=== PATIENT | male | born 1955 | race Caucasian/White ===

== ENCOUNTER 2018-04-24 14:45 | Observation (INO) | payer OTHER ==
[~2018-04-24] VITALS: Ht 177.8 cm; Wt 91.5 kg
[2018-04-24 15:06] LABS: BASOPHILS ABSOLUTE AUTO 0.02 K/mm3 (0.00-0.23); BASOPHILS PERCENT AUTO 0 % (0-2); EOSINOPHILS ABSOLUTE AUTO 0.04 K/mm3 (0.00-0.68); EOSINOPHILS PERCENT AUTO 1 % (0-6); Hematocrit 41.4 % (37.0-53.0); Hemoglobin 14.5 g/dL (13.5-17.5); IMMATURE GRAN ABSOLUTE AUTO 0.02 K/mm3 (0.00-0.10); IMMATURE GRAN PERCENT AUTO 0 % (0-1); LYMPHOCYTES ABSOLUTE AUTO 2.25 K/mm3 (0.84-5.20); LYMPHOCYTES PERCENT AUTO 33 % (21-46); MONOCYTES ABSOLUTE AUTO 0.36 K/mm3 (0.16-1.47); MONOCYTES PERCENT AUTO 5 % (4-13); Mean Corpuscular HGB 31.3 pg (26.0-34.0); Mean Corpuscular Volume 89 fL (80-100); Mean Platelet Volume 9.5 fL (9.1-12.4); NEUTROPHILS ABSOLUTE AUTO 4.07 K/mm3 (1.96-9.15); NEUTROPHILS PERCENT AUTO 60 % (41-73); Platelet Count 261 K/mm3 (150-400); RDW Coefficient Variation 11.9 % (11.7-14.2); RDW Standard Deviation 38.5 fL (35.1-46.3); Red Blood Cell Count 4.64 M/mm3 (4.30-5.90); White Blood Cell Count 6.76 K/mm3 (4.00-11.30)
[2018-04-24 15:23] LABS: Alanine Aminotransfer (ALT/SGP 33 U/L (12-78); Albumin, Blood 3.8 g/dL (3.4-5.0); Albumin/Globulin Ratio 1.1 (0.8-1.8); Alk Phos 34 U/L (50-136); Anion Gap 8 mmol/L (6-16); Aspartate Aminotrans (AST/SGOT 27 U/L (12-37); Bilirubin, Total 0.6 mg/dL (0.1-1.0); Blood Urea Nitrogen 13 mg/dL (8-24); Bun/Creatinine Ratio 14.7 (12.0-20.0); CO2, Blood 25 mmol/L (21-32); Calcium, Blood 8.8 mg/dL (8.5-10.1); Chloride, Blood 108 mmol/L (98-108); Creatinine, Blood 0.88 mg/dL (0.60-1.20); Globulin, Blood 3.4 g/dL (2.2-4.0); Glomerular Filtration Rate >60 (60-); Glucose, Blood 89 mg/dL (70-99); Sodium, Blood 141 mmol/L (136-145); Total Protein, Blood 7.2 g/dL (6.4-8.2); Troponin I <0.015 ng/mL (0.000-0.040)
[2018-04-25 07:30] LABS: Troponin I <0.015 ng/mL (0.000-0.040)
[2018-04-25 08:45] LABS: CHOL/HDL RATIO 3.8; Cholesterol 163 mg/dL (50-200); HDL Cholesterol 43 mg/dL (>39); LDL/HDL RATIO 2.4; Low Density Lipoprotein Chol 104 mg/dL (0-110); Triglycerides 82 mg/dL (30-160); Very Low Density Lipoprot Chol 16 mg/dL (6-32)
[2018-04-26] MEDS ORDERED: ASPI81CH PO (16:12)
== END 2018-04-26 16:31 | disposition home or self-care (01) ==
LOC: ER 14:45 → PCU 14:46
PROVIDERS: Emergency Medicine; Family Medicine
DX: R07.9 Chest pain, unspecified (principal); I10 Essential (primary) hypertension; F41.9 Anxiety disorder, unspecified; F43.9 Reaction to severe stress, unspecified; Z88.2 Allergy status to sulfonamides; Z79.899 Other long term (current) drug therapy; Z82.49 Family history of ischemic heart disease and other diseases of the circulatory system
CPT/HCPCS: 36415; 71046; 78452; 80053; 80061; 83880; 84484; 85025; 85379; 93005; 93010; 93017; 96374; 96375; 96376; 99285-25; A9500; G0378; J0706; J2785; J3010

== ENCOUNTER 2018-12-14 10:36 | Inpatient (IN) | payer OTHER ==
[~2018-12-14] VITALS: Ht 170.2 cm; Wt 98.2 kg
[~2018-12-14 10:36] MED LIST: ASPI81CH PO
[2018-12-14] MEDS ORDERED: CLON.5 PO (10:58)
[2018-12-14] MEDS ORDERED: PRAZ2 PO (10:58)
[2018-12-14] MEDS ORDERED: Mirtazapine7.5 MG PO (10:59)
[2018-12-14 11:25] LABS: BASOPHILS ABSOLUTE AUTO 0.03 K/mm3 (0.00-0.23); BASOPHILS PERCENT AUTO 0 % (0-2); EOSINOPHILS ABSOLUTE AUTO 0.06 K/mm3 (0.00-0.68); EOSINOPHILS PERCENT AUTO 1 % (0-6); Hematocrit 45.4 % (37.0-53.0); Hemoglobin 15.6 g/dL (13.5-17.5); IMMATURE GRAN ABSOLUTE AUTO 0.02 K/mm3 (0.00-0.10); IMMATURE GRAN PERCENT AUTO 0 % (0-1); LYMPHOCYTES ABSOLUTE AUTO 2.32 K/mm3 (0.84-5.20); LYMPHOCYTES PERCENT AUTO 32 % (21-46); MONOCYTES ABSOLUTE AUTO 0.41 K/mm3 (0.16-1.47); MONOCYTES PERCENT AUTO 6 % (4-13); Mean Corpuscular HGB 31.1 pg (26.0-34.0); Mean Corpuscular HGB Conc 34.4 g/dL (31.5-36.5); Mean Corpuscular Volume 90 fL (80-100); Mean Platelet Volume 9.7 fL (9.1-12.4); NEUTROPHILS ABSOLUTE AUTO 4.44 K/mm3 (1.96-9.15); NEUTROPHILS PERCENT AUTO 61 % (41-73); Platelet Count 259 K/mm3 (150-400); RDW Coefficient Variation 12.1 % (11.7-14.2); RDW Standard Deviation 39.8 fL (35.1-46.3); Red Blood Cell Count 5.02 M/mm3 (4.30-5.90); White Blood Cell Count 7.28 K/mm3 (4.00-11.30)
[2018-12-14 11:36] LABS: Anion Gap 7 mmol/L (6-16); Blood Urea Nitrogen 15 mg/dL (8-24); Bun/Creatinine Ratio 17.9 (12.0-20.0); CO2, Blood 22 mmol/L (21-32); Calcium, Blood 8.8 mg/dL (8.5-10.1); Chloride, Blood 110 mmol/L (98-108); Creatinine, Blood 0.84 mg/dL (0.60-1.20); Glomerular Filtration Rate >60 (60-); Glucose, Blood 91 mg/dL (70-99); Potassium, Blood 3.8 mmol/L (3.5-5.5); Sodium, Blood 139 mmol/L (136-145)
[2018-12-14 14:55] LABS: Source, Urine Clean Catch
[2018-12-14 14:59] LABS: Bilirubin, Urine Neg (Neg); Blood, Urine Neg (Neg); Glucose Qualitative, Urine Neg (Neg); Ketones, Urine 2+ (Neg); Leukocyte Esterase, Urine 1+ (Neg); Nitrite, Urine Neg (Neg); Protein, Urine 1+ (Neg); Urobilinogen, Urine 1+ (Normal)
[2018-12-14 15:06] LABS: Appearance, Urine Clear (Clear); Color, Urine Amber (P-Yellow)
[2018-12-14 15:20] LABS: Bacteria Rare /hpf; Mucus Heavy (0-Heavy); Red Blood Cells, Urine Rare /hpf (0-2); Squamous Epithelial Cells Few /hpf (Few); White Blood Cells, Urine 0-2 /hpf (0-5)
--- NOTE | 2018-12-14 23:50 | NUR ---
pT CAME FROM er WITH NO DIET ORDER. pT HAVING NO PROBLEMS SWALLOWING AND IS VERY HUNGRY. MD called and cardiac diet recieved.
--- NOTE | 2018-12-15 04:03 | NUR ---
Shift summary. Pt had slept well since getting pm meds and fed some food. Pt states that most of his stroke symptoms has been resolved except for his right leg. Pt can bear weight but has a hard time getting his right leg to do what he wants it to do. 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 pt having no problems with swallowing. No facial droop noted.
--- NOTE | 2018-12-15 11:34 | NUR ---
Echocardiogram using 9.0ml of agitated saline contrast performed.
--- NOTE | 2018-12-15 16:49 | NUR ---
PATIENT UP AND WALKING WITH PT THIS SHIFT. NO FACIAL DROOP NOTED. HE IS ALERT AND ORIENTED AND NO SLUR TO SPEACH NOTED. NO COMPLAINTS OF PAIN. AT BEDSIDE ALL SHIFT.
--- NOTE | 2018-12-16 04:49 | NUR ---
Shift summary: Pt slept well overnight with no c/o discomfort after i gave him tylenol for right knee pain at hs. Pt still experiencing weakness in his left leg but states its improving. Pt tolerating po well. VSS.
[2018-12-16 05:32] LABS: BASOPHILS ABSOLUTE AUTO 0.03 K/mm3 (0.00-0.23); BASOPHILS PERCENT AUTO 1 % (0-2); EOSINOPHILS ABSOLUTE AUTO 0.26 K/mm3 (0.00-0.68); EOSINOPHILS PERCENT AUTO 4 % (0-6); Hematocrit 44.7 % (37.0-53.0); Hemoglobin 14.8 g/dL (13.5-17.5); IMMATURE GRAN ABSOLUTE AUTO 0.03 K/mm3 (0.00-0.10); IMMATURE GRAN PERCENT AUTO 1 % (0-1); LYMPHOCYTES ABSOLUTE AUTO 2.62 K/mm3 (0.84-5.20); LYMPHOCYTES PERCENT AUTO 42 % (21-46); MONOCYTES PERCENT AUTO 6 % (4-13); Mean Corpuscular HGB 30.7 pg (26.0-34.0); Mean Corpuscular HGB Conc 33.1 g/dL (31.5-36.5); Mean Platelet Volume 9.6 fL (9.1-12.4); NEUTROPHILS PERCENT AUTO 46 % (41-73); Platelet Count 223 K/mm3 (150-400); RDW Coefficient Variation 12.3 % (11.7-14.2); Red Blood Cell Count 4.82 M/mm3 (4.30-5.90); White Blood Cell Count 6.24 K/mm3 (4.00-11.30)
[2018-12-16 05:34] LABS: Mean Corpuscular Volume 93 fL (80-100)
[2018-12-16 06:10] LABS: Alanine Aminotransfer (ALT/SGP 31 U/L (12-78); Albumin, Blood 3.5 g/dL (3.4-5.0); Albumin/Globulin Ratio 1.2 (0.8-1.8); Alk Phos 29 U/L (50-136); Anion Gap 7 mmol/L (6-16); Aspartate Aminotrans (AST/SGOT 18 U/L (12-37); Bilirubin, Total 0.6 mg/dL (0.1-1.0); Blood Urea Nitrogen 14 mg/dL (8-24); CO2, Blood 24 mmol/L (21-32); Calcium, Blood 8.5 mg/dL (8.5-10.1); Chloride, Blood 113 mmol/L (98-108); Creatinine, Blood 0.82 mg/dL (0.60-1.20); Glomerular Filtration Rate >60 (60-); Glucose, Blood 88 mg/dL (70-99); Potassium, Blood 4.1 mmol/L (3.5-5.5); Sodium, Blood 144 mmol/L (136-145); Total Protein, Blood 6.5 g/dL (6.4-8.2)
[2018-12-16] MEDS ORDERED: ASPI81CH PO (13:45)
--- NOTE | 2018-12-16 18:11 | NUR ---
DISCHARGE SUMMARY PT A&OX4. CALM AND COOPERATIVE WITH CARE. PT ANXIOUS AT TIMES, MEDICATED WITH SCHEDULED CLONOPIN. PT RPEORTS HEADACHE THIS AM, DENIES NEED OLIVIA MEDICATIONS. PT DENEIS SOB AND N/V T/O SHIFT. RLE WEAKNESS GREATER THEN RUE, RUE STILL NOTED IN COAT OPERATOR INSULATOR. VSS. NO OTHER ACUTE CHANGES NOTED DURING SHIFT. PT EDUCATED ON DISCHARGE INSTRUCTIONS, MEDICATIONS AND FOLLOW UP APPOINTMENTS. PT STATES HE WILL NOT BE SEEING DR CAMPOVERDE AGAIN, HIM AND HIS SPOUSE WERE "FIRED" FROM HIS CARE. PT STATES THAT HE PLANS TO SET UP A PCP AND HAVE A FIRST APPOINTMENT SOON. NO NEW PRESCRIPTIONS. PT LEFT ROOM VIA WHEELCHAIR AT 1520. PT STABLE UPON DISCHARGE.
== END 2018-12-16 16:10 | disposition home or self-care (01) | DRG 103 ==
LOC: ER 10:36 → MEDS 16:58
PROVIDERS: Emergency Medicine; Internal Medicine; ADMIT Internal Medicine
DX: G43.109 Migraine with aura, not intractable, without status migrainosus (principal); Q21.0 Ventricular septal defect; R53.1 Weakness; I10 Essential (primary) hypertension; F41.1 Generalized anxiety disorder; F43.10 Post-traumatic stress disorder, unspecified; F32.9 Major depressive disorder, single episode, unspecified
CPT/HCPCS: 36415; 70450; 70496; 70498; 70551; 80048; 80053; 81001; 84443; 85025; 85651; 87086; 92610; 93005; 93010; 93306; 96361; 96374-59; 96375-59; 97110; 97116; 97162; 97166; 97530; 97535; 99285-25; J2060; J2765; J7030; Q9967

== ENCOUNTER 2019-05-07 13:15 | Emergency (ER) | payer OTHER ==
[~2019-05-07] VITALS: Ht 172.7 cm; Wt 88.5 kg
[~2019-05-07 13:15] MED LIST changes: +CLON.5 PO; +Mirtazapine45 M1 PO; +PRAZ1 PO
[2019-05-07 13:42] LABS: BASOPHILS ABSOLUTE AUTO 0.04 K/mm3 (0.00-0.23); BASOPHILS PERCENT AUTO 1 % (0-2); EOSINOPHILS ABSOLUTE AUTO 0.01 K/mm3 (0.00-0.68); EOSINOPHILS PERCENT AUTO 0 % (0-6); Hematocrit 44.3 % (37.0-53.0); IMMATURE GRAN ABSOLUTE AUTO 0.02 K/mm3 (0.00-0.10); IMMATURE GRAN PERCENT AUTO 0 % (0-1); LYMPHOCYTES PERCENT AUTO 27 % (21-46); MONOCYTES ABSOLUTE AUTO 0.44 K/mm3 (0.16-1.47); MONOCYTES PERCENT AUTO 6 % (4-13); Mean Corpuscular HGB Conc 33.9 g/dL (31.5-36.5); Mean Corpuscular Volume 92 fL (80-100); Mean Platelet Volume 9.3 fL (9.1-12.4); NEUTROPHILS ABSOLUTE AUTO 4.75 K/mm3 (1.96-9.15); NEUTROPHILS PERCENT AUTO 66 % (41-73); Platelet Count 244 K/mm3 (150-400); RDW Coefficient Variation 12.1 % (11.7-14.2); RDW Standard Deviation 40.3 fL (35.1-46.3); Red Blood Cell Count 4.84 M/mm3 (4.30-5.90); White Blood Cell Count 7.16 K/mm3 (4.00-11.30)
[2019-05-07 13:57] LABS: International Normalized Ratio 1.04
[2019-05-07 14:02] LABS: Alanine Aminotransfer (ALT/SGP 42 U/L (12-78); Albumin, Blood 4.2 g/dL (3.4-5.0); Albumin/Globulin Ratio 1.1 (0.8-1.8); Alk Phos 41 U/L (50-136); Anion Gap 8 mmol/L (6-16); Aspartate Aminotrans (AST/SGOT 28 U/L (12-37); Bilirubin, Total 0.6 mg/dL (0.1-1.0); Blood Urea Nitrogen 16 mg/dL (8-24); Bun/Creatinine Ratio 19.5 (12.0-20.0); CO2, Blood 24 mmol/L (21-32); Calcium, Blood 8.9 mg/dL (8.5-10.1); Chloride, Blood 109 mmol/L (98-108); Creatinine, Blood 0.82 mg/dL (0.60-1.20); Globulin, Blood 3.7 g/dL (2.2-4.0); Glomerular Filtration Rate >60 (60-); Glucose, Blood 118 mg/dL (70-99); Sodium, Blood 141 mmol/L (136-145); Total Protein, Blood 7.9 g/dL (6.4-8.2)
[2019-05-07] MEDS ORDERED: Esgic Tablet1 EACH PO (17:01)
== END 2019-05-07 17:35 | disposition home or self-care (01) ==
LOC: ER 13:15
PROVIDERS: Emergency Medicine
DX: G43.409 Hemiplegic migraine, not intractable, without status migrainosus (principal); R47.01 Aphasia; F32.9 Major depressive disorder, single episode, unspecified; Z88.2 Allergy status to sulfonamides; Z91.018 Allergy to other foods; Z79.899 Other long term (current) drug therapy; Z79.82 Long term (current) use of aspirin; Z79.02 Long term (current) use of antithrombotics/antiplatelets
CPT/HCPCS: 36415; 70496; 80053; 85025; 85610; 85730; 93005; 93010; 96365-59; 96375-59; 99284-25; J1170; J1885; J2550; J3475; Q9967

== ENCOUNTER 2019-05-09 13:58 | Inpatient (IN) | payer OTHER ==
[~2019-05-09] VITALS: Ht 170.2 cm; Wt 91.4 kg
[~2019-05-09 13:58] MED LIST changes: +Esgic Tablet1 EACH PO
[2019-05-09 14:30] LABS: BASOPHILS ABSOLUTE AUTO 0.01 K/mm3 (0.00-0.23); BASOPHILS PERCENT AUTO 0 % (0-2); EOSINOPHILS ABSOLUTE AUTO 0.04 K/mm3 (0.00-0.68); EOSINOPHILS PERCENT AUTO 1 % (0-6); Hemoglobin 12.5 g/dL (13.5-17.5); IMMATURE GRAN ABSOLUTE AUTO 0.02 K/mm3 (0.00-0.10); IMMATURE GRAN PERCENT AUTO 0 % (0-1); LYMPHOCYTES ABSOLUTE AUTO 1.97 K/mm3 (0.84-5.20); LYMPHOCYTES PERCENT AUTO 32 % (21-46); MONOCYTES ABSOLUTE AUTO 0.45 K/mm3 (0.16-1.47); MONOCYTES PERCENT AUTO 7 % (4-13); Mean Corpuscular HGB 31.3 pg (26.0-34.0); Mean Corpuscular HGB Conc 33.8 g/dL (31.5-36.5); Mean Corpuscular Volume 93 fL (80-100); Mean Platelet Volume 9.8 fL (9.1-12.4); NEUTROPHILS ABSOLUTE AUTO 3.74 K/mm3 (1.96-9.15); NEUTROPHILS PERCENT AUTO 60 % (41-73); Platelet Count 176 K/mm3 (150-400); RDW Coefficient Variation 11.9 % (11.7-14.2); RDW Standard Deviation 40.7 fL (35.1-46.3); White Blood Cell Count 6.23 K/mm3 (4.00-11.30)
[2019-05-09] MEDS ORDERED: CLOP75 PO (14:31)
[2019-05-09] MEDS ORDERED: CLON1 PO (14:31)
[2019-05-09 14:32] LABS: Source, Urine Clean Catch
[2019-05-09] MEDS ORDERED: VENL75ER PO (14:32)
[2019-05-09] MEDS ORDERED: HYDPAM25 PO (14:32)
[2019-05-09 14:35] LABS: Bilirubin, Urine Neg (Neg); Blood, Urine 2+ (Neg); Glucose Qualitative, Urine Neg (Neg); Ketones, Urine Neg (Neg); Leukocyte Esterase, Urine Neg (Neg); Nitrite, Urine Neg (Neg); Protein, Urine Neg (Neg); Urobilinogen, Urine NORM (Normal)
[2019-05-09 14:45] LABS: Acetaminophen, Random 42.4 ug/mL (10.0-30.0); Alanine Aminotransfer (ALT/SGP 33 U/L (12-78); Albumin, Blood 3.4 g/dL (3.4-5.0); Albumin/Globulin Ratio 1.3 (0.8-1.8); Alk Phos 31 U/L (50-136); Anion Gap 11 mmol/L (6-16); Aspartate Aminotrans (AST/SGOT 19 U/L (12-37); Bilirubin, Total 0.9 mg/dL (0.1-1.0); Blood Urea Nitrogen 15 mg/dL (8-24); Bun/Creatinine Ratio 15.6 (12.0-20.0); CO2, Blood 21 mmol/L (21-32); Calcium, Blood 7.5 mg/dL (8.5-10.1); Chloride, Blood 106 mmol/L (98-108); Creatinine, Blood 0.96 mg/dL (0.60-1.20); Ethanol (Alcohol), Blood, Med <3 mg/dL; Free Thyroxine 1.15 ng/dL (0.70-1.60); Globulin, Blood 2.7 g/dL (2.2-4.0); Glomerular Filtration Rate >60 (60-); Glucose, Blood 129 mg/dL (70-99); Salicylate <1.7 mg/dL (2.8-20.0); Sodium, Blood 138 mmol/L (136-145); Total Protein, Blood 6.1 g/dL (6.4-8.2)
[2019-05-09 14:47] LABS: Appearance, Urine Clear (Clear); Color, Urine Yellow (P-Yellow)
[2019-05-09 14:47] LABS: PCO2 Arterial 28.8 mmHg (35-45); PO2 Arterial 391 mmHg (80-100); pH Blood Arterial 7.42 (7.35-7.45)
[2019-05-09 14:48] LABS: Bacteria Few /hpf; Squamous Epithelial Cells Not Seen /hpf (Few); White Blood Cells, Urine 0-2 /hpf (0-5)
[2019-05-09 14:49] LABS: U Amphetamine Screen Not Detected; U Barbituate Screen DETECTED; U Benzodiazapine Screen Not Detected; U Buprenorphine Screen Not Detected; U Cannabinoids Screen Not Detected; U Cocaine Screen Not Detected; U Methadone Screen Not Detected; U Methamphetamine Screen Not Detected; U Opiates Screen Not Detected; U Oxycodone Screen Not Detected; U Phencyclidine Screen Not Detected; U Propoxyphene Screen Not Detected
[2019-05-09 16:07] LABS: International Normalized Ratio 1.11; Prothrombin Time Results 11.7 Sec (9.7-11.5)
--- NOTE | 2019-05-09 17:30 | NUR ---
Asked by ED staff to provide calm presence to spouse, Lissette. 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 She beleives his health problems combined with his depression led him to attempt suicide. Then she states she is not sure this was an intentional attempt. Nish explained to me in-detail her own health issues at length. Provided calm asurance of care and attention. Encouraged she go home to rest once Nilesh is settled. I will remain available to pt and spouse.
--- NOTE | 2019-05-09 18:41 | NUR ---
1630-RECEIVED THIS PATIENT FROM ER WITH A DIAGNOSIS OF MULTIPLE DRUG OVERDOSE. UNKNOWN OF WHEN PT HAD INGESTED THE MEDICATIONS. PT IS ON 15MCG/KG/MIN OF PROPFOL. PT IS UNRESPONSIVE TO VERBAL STIMULI BUT SLIGHT RESPONSE TO DEEP PAIN. PT SEEN BY DR. THOMASON. PT IS INTUBATED AND VENTED AC 16, TV 450 PEEP 5 1700-PT SEEN BY DR. MUHAMMAD 1730-DECREASED PROPOFOL DRIP TO 10MCG/KG/MIN. 1800-PT WAS TAKEN TO RADIOLOGY FOR CT SCAN HEAD. 184-POISON CONTROLLED CALLED FOR FOLLOW UP. POISON CONTROL RECOMMENDED TO RECHECK ANOTHER ASPIRIN LEVEL. DR. MUHAMMAD WAS NOTIFIED ORDERS RECEIVED.
--- NOTE | 2019-05-09 20:00 | NUR ---
ASSUMED CARE BEDSIDE REPORT RECIEVED. PT IS LAYING IN BED, SEDATED, ON VENTILATOR. VENT SETTINGS AC 16, TV 450, PEEP 5, FIO2 30%. PT SEDATED WITH PROPOFOL AT 10 MCG/KG/MIN. PT NOT AROUSING TO VERBAL OR NOXIOUS STIMULI. PUPILS SLUGGISH. PT WITH MINIMAL GAG RESPONSE WITH DEEP ORAL SUCTION. PT WITH COPIOUS BLOODY ORAL SECRETIONS, MINIMAL SECRETIONS FROM ETT SUCTION. OGT IN PLACE TO LIS, NO NEW OUTPUT NOTED. RUIZ IN PLACE WITH CLEAR YELLOW OUTPUT NOTED. SBW RESTRAINTS INPLACE. VITAL SIGNS STABLE. PT HYPOTHERMIC, BEAR HUGGER AND WARM BLANKETS IN PLACE. PT SPOUSE AT BEDSIDE, THOROUGHLY EXPLAINED PLAN OF CARE AND PATIENT CARE ACTIVITIES. WILL CONTINUE TO MONITOR.
--- NOTE | 2019-05-09 21:14 | NUR ---
VENT SETTINGS PT CONTINUES TO HAVE ASYNCRONY WITH VENT. DR WATERMAN NOTIFIED AND UPDATED TO PT CONDITION. PT SWITCH TO PRESSURE SUPPORT OF 7/5 AND TOLERATING WELL. OK TO LEAVE PT ON PRESSURE SUPPORT LONG TOLERATED. PROPOFOL ON STANDBY AT THIS TIME. WILL CONTINUE TO MONITOR.
[2019-05-09 22:09] LABS: Alanine Aminotransfer (ALT/SGP 39 U/L (12-78); Albumin, Blood 3.2 g/dL (3.4-5.0); Albumin/Globulin Ratio 1.1 (0.8-1.8); Alk Phos 31 U/L (50-136); Anion Gap 12 mmol/L (6-16); Aspartate Aminotrans (AST/SGOT 17 U/L (12-37); Bilirubin, Total 0.7 mg/dL (0.1-1.0); Blood Urea Nitrogen 15 mg/dL (8-24); Bun/Creatinine Ratio 22.7 (12.0-20.0); CO2, Blood 21 mmol/L (21-32); Calcium, Blood 7.3 mg/dL (8.5-10.1); Chloride, Blood 106 mmol/L (98-108); Creatinine, Blood 0.66 mg/dL (0.60-1.20); Glomerular Filtration Rate >60 (60-); Glucose, Blood 174 mg/dL (70-99); Magnesium, Blood 1.9 mg/dL (1.6-2.4); Potassium, Blood 4.5 mmol/L (3.5-5.5); Salicylate <1.7 mg/dL (2.8-20.0); Sodium, Blood 139 mmol/L (136-145); Total Protein, Blood 6.2 g/dL (6.4-8.2)
--- NOTE | 2019-05-09 23:41 | NUR ---
POISON CONTROL UPDATED TO MOST RECENT EKG, LABS, AND VS. NO NEW RECOMMENDATIONS AT THIS TIME. WILL CONTINUE TO MONITOR.
[2019-05-10 03:30] LABS: BASOPHILS ABSOLUTE AUTO 0.02 K/mm3 (0.00-0.23); BASOPHILS PERCENT AUTO 0 % (0-2); EOSINOPHILS ABSOLUTE AUTO 0.01 K/mm3 (0.00-0.68); EOSINOPHILS PERCENT AUTO 0 % (0-6); Hematocrit 36.2 % (37.0-53.0); Hemoglobin 12.7 g/dL (13.5-17.5); IMMATURE GRAN ABSOLUTE AUTO 0.03 K/mm3 (0.00-0.10); IMMATURE GRAN PERCENT AUTO 0 % (0-1); LYMPHOCYTES ABSOLUTE AUTO 1.22 K/mm3 (0.84-5.20); LYMPHOCYTES PERCENT AUTO 13 % (21-46); MONOCYTES ABSOLUTE AUTO 0.43 K/mm3 (0.16-1.47); MONOCYTES PERCENT AUTO 4 % (4-13); Mean Corpuscular HGB 31.1 pg (26.0-34.0); Mean Corpuscular HGB Conc 35.1 g/dL (31.5-36.5); Mean Corpuscular Volume 89 fL (80-100); Mean Platelet Volume 9.6 fL (9.1-12.4); NEUTROPHILS ABSOLUTE AUTO 8.03 K/mm3 (1.96-9.15); NEUTROPHILS PERCENT AUTO 83 % (41-73); Platelet Count 188 K/mm3 (150-400); RDW Coefficient Variation 11.7 % (11.7-14.2); RDW Standard Deviation 37.3 fL (35.1-46.3); Red Blood Cell Count 4.09 M/mm3 (4.30-5.90); White Blood Cell Count 9.74 K/mm3 (4.00-11.30)
[2019-05-10 03:49] LABS: Alanine Aminotransfer (ALT/SGP 33 U/L (12-78); Alk Phos 29 U/L (50-136); Anion Gap 10 mmol/L (6-16); Aspartate Aminotrans (AST/SGOT 21 U/L (12-37); Bilirubin, Total 0.8 mg/dL (0.1-1.0); Blood Urea Nitrogen 12 mg/dL (8-24); Bun/Creatinine Ratio 18.2 (12.0-20.0); CO2, Blood 22 mmol/L (21-32); Calcium, Blood 7.3 mg/dL (8.5-10.1); Chloride, Blood 108 mmol/L (98-108); Creatinine, Blood 0.66 mg/dL (0.60-1.20); Glomerular Filtration Rate >60 (60-); Glucose, Blood 120 mg/dL (70-99); Magnesium, Blood 1.8 mg/dL (1.6-2.4); Potassium, Blood 3.7 mmol/L (3.5-5.5); Sodium, Blood 140 mmol/L (136-145)
--- NOTE | 2019-05-10 06:00 | NUR ---
SHIFT SUMMARY NO ACUTE CHANGES. PT REMAINS ON VENTILATOR ON PRESSURE SUPPORT 05/24, FIO2 30%. PT SEDATED WITH PROPOFOL AT 20 MCG/KG/MIN. NAC 3RD BAG INFUSING AT 65 ML/HR. NS WITH 20 MEQ OF KCL INFUSING AT 100 ML/HR. OGT REMAINS IN PLACE WITH MINIMAL OUTPUT NOTED. RUIZ IN PLACE WITH GOOD URINE OUTPUT THIS SHIFT. VITAL SIGNS HAVE REMAINED STABLE. SBW RESTRAINTS IN PLACE. PT WITH MORE PURPOSEFUL MOVEMENT AND SHAKING HEAD SIDE TO SIDE MORE WITH NOXIOUS STIMULI. PT SPOUSE REMAINS AT BEDSIDE. WILL CONTINUE TO MONITOR AND REPORT OFF TO ONCOMING RN.
--- NOTE | 2019-05-10 07:15 | NUR ---
BEGINNING OF SHIFT Assumed care at 0700 with Vicki VELIZ. Bedside report recieved from Matteo VELIZ. Pt on ventilator pressure support 05/24, FiO2 30%. SpO2 96%. RR 19. Pt's tidal volumes between 500 and 550. Pt sedated with 20 mcg/kg/min propofol. Pt does not follow commands. Sluggish pupillary response. Gag and cough reflex noted. Scant amount of thick green sputum aspirated from in-line suction. Blood tinged secretions noted with deep subglottic suctioning.
--- NOTE | 2019-05-10 09:38 | NUR ---
DR IVONE THOMASON AT BEDSIDE Provider at bedside. Discussed increase in WBC. Provider states antibiotics not necessary at this time. Discussed pain control due to chest compressions and inability to express pain due to sedation and paralytics. Plan to start fentanyl drip. Provider aware that EEG will be performed this AM. Pt's spouse, Fawn, at bedside. Updated spouse on plan of care. Notified of plans for EEG.
--- NOTE | 2019-05-10 09:47 | NUR ---
MEDICATIONS Pt's spouse at bedside, verbalizes concern that pt did not overdose on medications. She states that pt has had several episodes of "passing out" and several "strokes". She states that she found the empty pill bottles, but noticed that pt has refilled pill organizer. Pt states she believes this is why the pill bottles are empty- not because of an intentional overdose. This RN reviewed empty pill bottles: Hydroxyzine 90 pills dispensed 04/30/19 Plavix 30 pills dispensed 04/29/19 Venlafaxine 30 pills dispensed 04/30/19 Butabital/APAP/caffeine 20 pills dispensed 05/07/19 Additionally, there were two empty bottles each of clonazepam and mirtazepine dispensed in March. Upon review of pt's pill organzier, these quantities of pills are not present in the organzier. This RN discussed this discrepancy with the pt's spouse, but she continues to believe that pt did not injest these pills.
--- NOTE | 2019-05-10 10:43 | NUR ---
PROPOFOL ON STANDBY Dr All Main at bedside 1030. Potential plan for extubation today. Pt currently unresponsive to verbal stimulus or pain at this time. Will continue to assesss.
--- NOTE | 2019-05-10 11:39 | NUR ---
UPDATE This RN notified Dr All Main of pt's neuro assessment, unchanged from last note. Plan to reevaluate pt at [address] if pt's LOC does not improve. [facility] center called unit for update. Update provided. Recommendation to stop acetylcystine after current bag is finished. Music therapy at bedside playing music for pt and spouse.
--- NOTE | 2019-05-10 13:55 | NUR ---
UPDATE Pt grimaces with pain. Cough and gag reflexes stronger than previously noted. Pt does not open eyes. Dr All Main updated. Plan for spot EEG today. Will not perform head CT at this time.
--- NOTE | 2019-05-10 16:49 | NUR ---
EEG CANCELED Dr All Main at bedside. Pt withdrawing from noxious stimuli, attempting to reach for deidra during oral care. Provider states order to DC EEG due to improved mentation and decreased likelihood that pt is having seizures.
--- NOTE | 2019-05-10 17:58 | NUR ---
SUMMARY At this time, pt grimaces with pain. Reaches for ETT when hands are not restrained. Pt does not open eyes or follow commands. Strong cough and gag reflexes noted. Corneal reflex intact. PERRL. Propofol off since 1029. Acetylcystine off. Pt remains on pressure support /, FiO2 30%. Tidal volumes between 500 and 550. SpO2 90% or greater. RR 18-22. Small amounts of thick, green sputum aspirated from in-line suction. Brown aspirate from OG tube with LIS. No BM this shift. Will continue to closely monitor until care handoff and bedside report with oncoming RN.
--- NOTE | 2019-05-10 17:58 | NUR ---
Pal [facility]ual [facility] intial note: Called by numerous staff throughout the day to provide comfort and career counselor to pt's spouse, Lissette. She has been sobbing loudly throughout 2nd floor. I have attempted to take her to ICU waiting area, pt consult room, chapel, but Lissette declines. From previous dealings with Lissette in this hospital, she tends to be historionic and prone to wild speculation. She told me she had been told that Nilesh was "getting worse" when this is in-fact untrue. Various other statements were made that were against reality. When I attmepted to calm her with assurance and facts, she would calm momentarily, but return to loud sobs. I have repeatedly advised Lissette to go home, rest, eat, take breaks--but she declines. All this said, Lissette is appreciative of encouragement and prayer. Verification Rep Services will remain available.
--- NOTE | 2019-05-10 19:00 | NUR ---
ASSUMED CARE ASSUMED CARE OF PATIENT. REMAINS INTUBATED- PS 9/5, FIO2 30%. RR 21. HICCUPS NOTED. FACIAL GRIMACING NOTED WITH ORAL SUCTIONING. NO GAG RELEX NOTED. NO RESPONSE TO NOXIOUS STIMULI. CHRISTINA, 3MM, SLUGGISH. BILATERAL SOFT WRIST RESTRAINTS REMAIN ON AT THIS TIME. MONITOR SHOWS NSR, RATE 90s. BP STABLE. OG TO LIS WITH SCANT BROWN DRAINAGE. RUIZ PATENT AND DRAINING TO GRAVITY. SEE SHIFT ASSESSMENT FOR FULL ASSESSMENT.
[2019-05-11 03:14] LABS: BASOPHILS ABSOLUTE AUTO 0.02 K/mm3 (0.00-0.23); BASOPHILS PERCENT AUTO 0 % (0-2); EOSINOPHILS PERCENT AUTO 0 % (0-6); Hematocrit 39.4 % (37.0-53.0); IMMATURE GRAN ABSOLUTE AUTO 0.06 K/mm3 (0.00-0.10); IMMATURE GRAN PERCENT AUTO 0 % (0-1); LYMPHOCYTES ABSOLUTE AUTO 0.63 K/mm3 (0.84-5.20); LYMPHOCYTES PERCENT AUTO 4 % (21-46); MONOCYTES ABSOLUTE AUTO 0.81 K/mm3 (0.16-1.47); MONOCYTES PERCENT AUTO 6 % (4-13); Mean Corpuscular HGB 31.3 pg (26.0-34.0); Mean Corpuscular HGB Conc 35.5 g/dL (31.5-36.5); Mean Corpuscular Volume 88 fL (80-100); Mean Platelet Volume 9.6 fL (9.1-12.4); NEUTROPHILS PERCENT AUTO 89 % (41-73); Platelet Count 188 K/mm3 (150-400); RDW Standard Deviation 38.5 fL (35.1-46.3); Red Blood Cell Count 4.47 M/mm3 (4.30-5.90); White Blood Cell Count 14.32 K/mm3 (4.00-11.30)
[2019-05-11 03:33] LABS: Alanine Aminotransfer (ALT/SGP 28 U/L (12-78); Albumin, Blood 3.3 g/dL (3.4-5.0); Alk Phos 37 U/L (50-136); Anion Gap 9 mmol/L (6-16); Aspartate Aminotrans (AST/SGOT 16 U/L (12-37); Bilirubin, Total 0.9 mg/dL (0.1-1.0); Blood Urea Nitrogen 6 mg/dL (8-24); Bun/Creatinine Ratio 8.8 (12.0-20.0); CO2, Blood 22 mmol/L (21-32); CPK Creatine Kinase 46 U/L (39-308); Calcium, Blood 8.3 mg/dL (8.5-10.1); Chloride, Blood 109 mmol/L (98-108); Creatinine, Blood 0.69 mg/dL (0.60-1.20); Globulin, Blood 3.3 g/dL (2.2-4.0); Glomerular Filtration Rate >60 (60-); Glucose, Blood 93 mg/dL (70-99); Magnesium, Blood 1.9 mg/dL (1.6-2.4); Potassium, Blood 4.2 mmol/L (3.5-5.5); Sodium, Blood 140 mmol/L (136-145); Total Protein, Blood 6.6 g/dL (6.4-8.2)
--- NOTE | 2019-05-11 03:54 | NUR ---
TEMPERATURE PT'S TEMP IN 101.3F PER RUIZ TEMP PROBE. PT UNCOVERED AND ICE PACKS APPLIED TO NECK, GROIN, AND UNDER ARMS.
--- NOTE | 2019-05-11 04:30 | NUR ---
RESPONSIVENESS SLIGHT GAG REFLEX NOTED WITH ORAL CARE. FACIAL GRIMACING NOTED. PT ATTEMPTS TO OPEN EYES WITH STIMULI. MOVING FINGERS, BUT NOT FOLLOWING ANY COMMANDS. REMAINS OFF SEDATION.
--- NOTE | 2019-05-11 06:07 | NUR ---
RESPONSIVENESS OPENS EYES SLIGHTLY WITH ORAL CARE. GAG REFLEX NOTED. REACHES RIGHT HAND TOWARDS LEG WHEN ICE PACK PLACED FOR INCREASED TEMPERATURE. STILL NOT FOLLOWING COMMANDS.
--- NOTE | 2019-05-11 06:09 | NUR ---
SHIFT SUMMARY NO ACUTE CHANGES. SLIGHT INCREASE IN RESPONSIVENESS NOTED THIS AM. REMAINS ON PS VENTILATION 05/24 WITH FIO2 30%. SX MODERATE AMOUNT OF THICK BROWN SPUTUM OCCASIONALLY. BILATERAL SOFT WRIST RESTRAINTS IN PLACE. MONITOR SHOWS NSR-ST, RATE 90-100s. BP STABLE. TMAX 101.1F- ICE PACKS PLACED TO REDUCE TEMP. OG TO LIS WITH SCANT BROWN DRAINAGE. RUIZ PATENT AND DRAINING MILES URINE. NS WITH 20mEq KCL INFUSING @ 100CC/HR PER ORDER. HAS BEEN AT BEDSIDE T/O NOC.
--- NOTE | 2019-05-11 07:15 | NUR ---
BEGINNING OF SHIFT Assumed care at 0700. Report received from Sandy VELIZ. Pt on ventilator, pressure support 05/24, 25% FiO2. Pt opens eyes to verbal stimulus. Follows directions. Strong gag reflex. Weak cough. Sinus tachycardia per monitor, rate 102. Pt's spouse at bedside.
--- NOTE | 2019-05-11 09:00 | NUR ---
UPDATE Pt increasingly agitated. Family educated on reducing stimuli to patient. Family verbalized understading. Lights in room turned off. Pt responded well, agitation decreased and pt fell asleep. Propofol titrated down to 20 mcg/kg/min. Dr Ahuja updated.
--- NOTE | 2019-05-11 09:00 | NUR ---
DR PEÑA IN ROOM Provider at bedside. States plan for pt to remain intubated today, as pt does not stay awake for more than 15-30 seconds. Discussed 300 mL gastric output since beginning of shift. Discussed brown/red color of output and pt's suspected intake of plavix prior to hospital admit. Plan for afternoon H&H.
--- NOTE | 2019-05-11 09:15 | NUR ---
DR PEÑA AT BEDSIDE Pt followed commands, squeezing provider's hands. Propofol turned off. Ventilator changed from AC to pressure support 04/23. FiO2 remains at 21%. Pt tolerating pressure support well. RR 12-16. Tidal volumes averaging 800-850 mL. SpO2 97%. Cooling blankets reapplied due to hyperthermia. Family educated. Family verbalizes understanding. Dr Peña aware of temperature. Core temp 100.5
--- NOTE | 2019-05-11 11:00 | NUR ---
FEVER Discussed pt's fever during previous shift with provider. Discussed WBC count. Plan to obtain sputum culture. Provider states fever is likely to medications pt ingested prior to hospitalization.
--- NOTE | 2019-05-11 11:49 | NUR ---
Patient is in bed and intubated with spouse, Lissette, bedside. 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 I provided empathic listening, a calming presence and prayer. Lissette responded well and thanked me not only for my care but also for the care she received the prior day from Chief Order Dispatcher Deedee Alonso. I will continue to remain available to patient and family.
--- NOTE | 2019-05-11 14:00 | NUR ---
UPDATE Ice packs placed to bilateral axilla due to fever. Cool washcloth placed to pt's forehead. Education provided to pt's spouse about measures for reducing fever. Pt's spouse verbalizes dissatisfaction with ice packs despite education.
[2019-05-11 16:10] LABS: Hematocrit 40.5 % (37.0-53.0); Hemoglobin 13.9 g/dL (13.5-17.5)
--- NOTE | 2019-05-11 16:45 | NUR ---
CALL PLACED TO DR PEÑA Updated provider that pt is febrile and temperature is increasing despite external cooling measures. New orders provided. Blood cultures to be obtained. Acetaminophen to be administered PT.
--- NOTE | 2019-05-11 17:30 | NUR ---
VISITORS DISRUPTING COOLING MEASURES Pt's spouse steps out of room while this RN enters to perform care. This RN notices that pt has two blankets. Fresh ice packs from axilla have been removed and are no longer in contact with patient. Ice packs with warm water present in axilla. Plan to reeducate spouse. Core temperature 101.7.
--- NOTE | 2019-05-11 18:45 | NUR ---
UPDATE This RN called poison control center to inquire about recommendations for hyperthermia. Case discussed. As pt does not have muscle ridgidity, [facility] control [place] recommends investigating infectious causes. This RN discussed case with Dr Ahuja. Provider states plan for antibiotics.
--- NOTE | 2019-05-11 18:52 | NUR ---
SUMMARY Pt remains on ventilator PS 9.5, FiO2 25%. RR 16-20. SpO2 95% or greater. [place]/green sputum, sputum sample sent this shift. Pt not on sedation. Pt responsive to verbal stimulus. Pt nods head yes or no to answer questions. Pt rehab department manager hands when instructed to do so. Strong gag reflex. Pt seldom coughs with ET suctioning. Pt febrile, T-max 101.9. Pt currently has ice packs to bilateral axilla and bilateral groin. Blankets removed. OG tube with continuous feeding per orders. OG tube previously to LIS. OG tube clamped for 4 hours prior to starting tube feed. Residual measured prior to starting tube feed, 0 mL aspirated from OG tube. Bedside report given to Bertrand VELIZ.
--- NOTE | 2019-05-11 20:00 | NUR ---
ASSUMED CARE OF PT AT 1915. REPORT RECEIVED AT BEDSIDE. PT PRESENTS IN BED, VENTED - PS BEFORE. DISCUSSED PLAN OF CARE WITH PT'S SPOUSE, VANNESA. WILL REVIEW CHART AND PLAN OF CARE FOR THIS PT.
--- NOTE | 2019-05-11 21:00 | NUR ---
HAVE NOTED PT HAS PERSISTANT HICCUPS. ON REVIEW OF PREVIOUS RN NOTES, THIS IS NOT NEW FOR PT. DR PEÑA HAS BEEN IN TO SEE PT THIS EVENING. DID STATE COULD USE PROPOFOL IF PT NEEDS THIS NIGHT. WILL MONITOR. PT'S IS IN ROOM. REMAINS PRIMARILY AT BEDSIDE. NEEDS REASSURANCE, AND EDUCATION TO PT'S STATUS. EXPLAINED TO VANNESA THAT GOAL WOULD BE TO HAVE PT REST THIS NIGHT. SHE VOICES UNDERSTANDING. WILL DO BEDBATH SOON FOR THIS PT. HAS BEEN MAINTAINING FEVER OF MAX 102.2 THIS NIGHT. ADMINISTERED TYLENOL FOR THIS PT PER OGT. RESIDUAL CHECKS REVEALS 15 ML GASTRIC CONTENT. THIS REIFUSED. TUBE FEEDING INCREASED TO 35 ML/HOUR. WILL CONTINUE TO MONITOR.
--- NOTE | 2019-05-12 | NUR ---
FULL BEDBATH DONE FOR THIS PT. HAS STEPPED OUT OF THE UNIT FOR A BREAK. PT ABLE TO SLEEP, ALTHOUGH DOES STILL HAVE THE PERSISTANT HICCUPS.
--- NOTE | 2019-05-12 02:52 | NUR ---
RETURNS TO ROOM, AND UPDATE GIVEN. DISCUSSED ALLOWING PT TO REST TONIGHT. WHEN THIS RN LEAVES ROOM, VANNESA GOES UP TO PT AND AWAKENS HIM. TRIES TO GET HER TO WRITE A NOTE TO HER. COMES TO THIS RN AND IS CONCERNED ABOUT PT BEING ANXIOUS, AND THAT HE WAS POINTING AT HIS CATHETER. DISCUSSED WITH THAT HE MAY BE FINDING SOME DISCOMFORT FROM CATHETER. RECOMMENDED THAT SHE ALLOW PT TO GO BACK TO SLEEP AND GET SOME REST. UNFORTUNATELY, SHE CONTINUES TO WAKE PT ANYWAYS. SHE DOES THIS AFTER STAFF LEAVES ROOM. HAVE SUCTIONED PT WITH RETURN OF THICK WHITE/CREAM COLORED SECRETIONS. CONTINUES TO TOLERATE TUBE FEEDING. ORAL SUCTIONING DONE SECONDARY TO ORAL SECRETIONS. HAVE PLACED PT TO LOW PROPOFOL INFUSION AT 20 MCG/KG/MIN. WILL MONITOR AND SEE IF DECREASE IN HICCUPS WILL OCCUR. DISCUSSED WITH RESPIRATORY THERAPY PLAN OF CARE. PT'S FEVER HAS COME DOWN SOME, BUT REMAINS 101.0-101.6. PERSONAL FAN PLACED ON PT. PT'S DOES GET OUT OF HER CHAIR WHEN STAFF LEAVES AND POINTS FAN AWAY FROM PT. WILL CONTINUE TO MONITOR.
[2019-05-12 03:18] LABS: BASOPHILS ABSOLUTE AUTO 0.04 K/mm3 (0.00-0.23); BASOPHILS PERCENT AUTO 0 % (0-2); EOSINOPHILS ABSOLUTE AUTO 0.01 K/mm3 (0.00-0.68); EOSINOPHILS PERCENT AUTO 0 % (0-6); Hematocrit 40.2 % (37.0-53.0); Hemoglobin 13.7 g/dL (13.5-17.5); IMMATURE GRAN ABSOLUTE AUTO 0.07 K/mm3 (0.00-0.10); IMMATURE GRAN PERCENT AUTO 1 % (0-1); LYMPHOCYTES ABSOLUTE AUTO 1.17 K/mm3 (0.84-5.20); LYMPHOCYTES PERCENT AUTO 8 % (21-46); MONOCYTES ABSOLUTE AUTO 1.25 K/mm3 (0.16-1.47); MONOCYTES PERCENT AUTO 9 % (4-13); Mean Corpuscular HGB 31.1 pg (26.0-34.0); Mean Corpuscular HGB Conc 34.1 g/dL (31.5-36.5); Mean Platelet Volume 9.8 fL (9.1-12.4); NEUTROPHILS ABSOLUTE AUTO 12.02 K/mm3 (1.96-9.15); NEUTROPHILS PERCENT AUTO 83 % (41-73); Platelet Count 215 K/mm3 (150-400); RDW Coefficient Variation 12.2 % (11.7-14.2); RDW Standard Deviation 41.1 fL (35.1-46.3); Red Blood Cell Count 4.41 M/mm3 (4.30-5.90); White Blood Cell Count 14.56 K/mm3 (4.00-11.30)
[2019-05-12 03:19] LABS: Mean Corpuscular Volume 91 fL (80-100)
[2019-05-12 03:47] LABS: Alanine Aminotransfer (ALT/SGP 24 U/L (12-78); Albumin/Globulin Ratio 0.8 (0.8-1.8); Alk Phos 42 U/L (50-136); Anion Gap 9 mmol/L (6-16); Aspartate Aminotrans (AST/SGOT 19 U/L (12-37); Blood Urea Nitrogen 12 mg/dL (8-24); Bun/Creatinine Ratio 17.9 (12.0-20.0); CO2, Blood 21 mmol/L (21-32); Calcium, Blood 8.8 mg/dL (8.5-10.1); Chloride, Blood 111 mmol/L (98-108); Creatinine, Blood 0.67 mg/dL (0.60-1.20); Glomerular Filtration Rate >60 (60-); Glucose, Blood 105 mg/dL (70-99); Magnesium, Blood 2.1 mg/dL (1.6-2.4); Sodium, Blood 141 mmol/L (136-145)
[2019-05-12 03:57] LABS: Phosphorus, Blood 0.8 mg/dL (2.5-4.9)
--- NOTE | 2019-05-12 05:05 | NUR ---
CALL MADE TO DR PEÑA CONCERNING PHOS LEVEL RETURING AT 0.8 ORDERS RECEIVED. UPDATE GIVEN ON PT'S CONTINUING HICCUPS, AND THAT PROPOFOL WAS STARTED. WILL CONTINUE TO MONITOR. PT'S ROOMS IN FOR THE NIGHT. SHE HAS ALLOWED PT TO SLEEP AFTER SPEAKING WITH HER AGAIN ABOUT PT NEEDING REST. PT'S TEMP HAS INCREASED AGAIN TO 102.2 GAVE 650 MG TYLENOL PER OGT. ICE PACKS AGAIN PLACED TO AXILLA BI LAT AND TO GROIN AREA. WILL MONITOR.
[2019-05-12 05:13] LABS: PCO2 Arterial 24.1 mmHg (35-45); PO2 Arterial 78.7 mmHg (80-100); pH Blood Arterial 7.51 (7.35-7.45)
--- NOTE | 2019-05-12 07:15 | NUR ---
REC'D REPORT FROM KEREN JOHN AND THIS RN IS NOW ASSUMING CARE.
--- NOTE | 2019-05-12 09:13 | NUR ---
0845: SEDATION VACATION STARTED. PROPOFOL ON STANDBY. PT CURRENTLY MORE ALERT. WILL OPEN EYES TO VOICE, FOLLOW SIMPLE COMMANDS, AND ANSWER SIMPLE YES/NO QUESTIONS. WILL CONTINUE TO MONITOR FOR POSSIBLE EXTUBATION. TV- VARIABLE (200-400ML W/ HICCUPS, AND 500-800ML OTHERWISE. ).
--- NOTE | 2019-05-12 09:33 | NUR ---
PT EXTUBATED: PT INITIALLY ON 4L 02 VIA N/C W/02 SATS 96-98%. DECREASED TO 2L 02 WITH SATS >92%. PT WILL SOFT VOICE THAT IS DIFFICULT TO UNDERSTAND. WILL DO SUICIDE RISK ASSESSMENT WHEN PT IS MORE AWAKE. PT IS SELF SX'ING AT THIS TIME AND CONTINUES TO HAVE A PRODUCTIVE COUGH W/ THICK VILLEDA SPUTUM.
--- NOTE | 2019-05-12 10:43 | NUR ---
[facility] UPDATE: ONCE PT WAS ABLE TO PARTICIPATE, [place] SUICIDE RISK ASSESSMENT DONE, WHICH PT SCORES POSITIVE. INFORMED DR ANGULO AND INITIATED HIGH RISK SUICIDE PRECAUTIONS, AWAITING 2 MD HOLD PAPERWORK. ROOM MITIGATED POST EXTUBATION OF POTENTIAL HAZARDS. INFORMED KEREN [place] JUDGE TO PLACE PT ON [place] AND CONFIRMED WITH [facility] MONITORING STATION THAT PT IS IN FACT ON THE [place]. UPON SUICIDE RISK ASSESSMENT. PT REPORTS HE DOES REMEMBER TAKING MULTIPLE DIFFERENT MEDICATIONS IN ATTEMPT TO END HIS LIFE. PT SLIGHTLY UNCLEAR EXACTLY WHAT MEDICATIONS HE TOOK. WHEN ASKED IF HE TOOK SPECIFIC AMTS OF ANYTHING, PT SHRUGS HIS SHOULDERS AND STATES, "I JUST EMPTIED OUT THE BOTTLES." PT REPORTS HE HAS ATTEMPTED TO END HIS LIFE ONCE BEFORE, APPROX 15 YEARS AGO. PT REPORTS HE HAS BEEN "VERY DEPRESSED" LATELY, AND HAS BEEN FEELING OVERWHELMED WITH CARING FOR AT HOME. ASKED IF PT HAS EVER LOOKED INTO RESOURCES TO ASSIST WITH 'S CARE AT HOME. PT REPORTS HE HAS NOT LOOKED INTO RESOURCES AND DOES NOT NOTE ANY FAMILY THAT CAN HELP WITH CARE.
--- NOTE | 2019-05-12 13:45 | NUR ---
PT UPDATE: TEMPERATURE INCREASING. ALTHOUGH EDUCATION WAS PROVIDED TO THE PT'S REGARDING PT'S CONTINUED ELEVATED TEMPERATURE, AND REASON/IMPORTANCE OF INTERVENTIONS TO REDUCE FEVER, PT WAS FOUND TO HAVE A BLANKET ON HIM WHEN THIS RN ENTERED ROOM AT THIS TIME. BLANKET REMOVED, ICE BAGS REFRESHED TO BILATERAL AXILLLA/GROIN, AND FAN BLOWING ON PT. TEMPERATURE IN RM ALL THE WAY DOWN. PT REMAINS ALERT AND ORIENTED TO SELF/FAMILY. SPEECH REMAINS SOFT/MUMBLED AND VERY DIFFICULT TO UNDERSTAND. PT ANSWERS QUESTIONS APPROPRIATELY AND FOLLOWING SIMPLE COMMANDS. REMAINS WEAK WITH MOVEMENTS, BUT REPORTS HE NORMALLY GETS AROUND INDEPENDENTLY AT HOME.
--- NOTE | 2019-05-12 15:57 | NUR ---
BEDSIDE SWALLOW EVALUATION: PT VERY EAGER TO EAT/DRINK. PT'S REMAINS ALERT AND CAN FOLLOW DIRECTIONS, HOWEVER, REMAINS DECONDITIONED AND IS HAVING DIFFICULTY WITH FINE MOTOR SKILLS AND RAISING HAND TO MOUTH. PT DID WELL WITH ICE CHIPS. NO CHOKING/SPUTTERING. ALSO, DID WELL WITH SMALL BITES OF JELLO, BUT HAD DIFFICULTY GETTING SPOON TO HIS MOUTH. PT MAY DO WELL WITH SOME LARGE HANDLED SILVERWARE. PT DID REQUIRE INCREASING 02 FROM RA TO 3L 02 VIA N/C PT DID DESATURATE AFTER BECOMEING TACHYPNEIC.
--- NOTE | 2019-05-12 16:53 | NUR ---
REPORTED OFF TO KEREN GOODWIN WHOM IS ASSUMING CARE OF THIS PT. PT MOVED FROM ICU-4 TO ICU-9. ALL BELONGINGS/CHART/MEDICATIONS BROUGHT TO [facility]. JESSE RN MITIGATED WITH W/KEREN GOODWIN.
--- NOTE | 2019-05-12 17:15 | NUR ---
ASSUMED CARE: REPORT RECEIVED FROM KEREN SEGOVIA. PT RESTING IN BED, SPEAKS TO STAFF BUT SPEECH IS SLURRED. ORIENTED TO SELF AND FOLLOWING DIRECTIONS. LUNG SOUNDS COARSE T/O. 1L NC FOR SATS ABOVE 92%. HICCUPS OCCASIONALLY. TEMP RUIZ IN PLACE WITH CURRENT TEMP AT 101.1. NO ACUTE NEEDS OR CONCERNS AT THIS TIME.
--- NOTE | 2019-05-12 19:15 | NUR ---
ASSUMED CARE PT RESTING QUIETLY RECLINING IN BED WITH SPOUSE AT BEDSIDE. HE IS NOTED TO BE SPEAKING IN SHORT SENTANCES AND STATES THAT HE IS HAVING DIFFICULTY BREATHING, LUNGS ARE NOTED COARSE THROUGHOUT WITH OCCASIONAL SCATTERED EXPIRATORY WHEEZEES, SATS ARE 92-93% WITH NASAL CANNULA OFF OF PT ON ARRIVAL TO ROOM, REPLACED NASAL CANNULA, OXYGEN AT 1 L/MIN, ASSISTED PT WITH FLUTTER VALVE USE, AND NOTIFIED RT OF PT COMPLAINT, RT TO BEDSIDE FOR CPT AND UDN. HRR, SINUS ON MONITOR, RATE 80-90S, PRESSURE MAINTAINING, SKIN PWD TO TRUNK, HANDS AND FEET ARE NOTED COOL, NO EDEMA BILAT LOWER EXTREMITIES, TRACE EDEMA TO HANDS, CAP REFILL IS BRISK. ABD SOFT, HYPOACTIVE BOWEL TONES ARE NOTED, NO GRIMACING OR GUARDING ON LIGHT PALPATION. TEMP PROBE RUIZ IN PLACE DRAINING CLEAR YELLOW URINE TO GRAVITY. PT C/O HEADACHE AT THIS TIME, COOL CLOTH TO FOREHEAD, WILL ADMINISTER TYLENOL WHEN AVAILABLE FOR FEVER AND COMPLAINT OF HEADACHE.
--- NOTE | 2019-05-12 23:37 | NUR ---
PT RESTING QUIETLY AND APPEARS TO BE SLEEPING, RESPIRATIONS ARE EVEN WITHOUT VISIBLE INCREASED WORK OF BREATHING. PT AROUSES EASILY TO VERBAL STIMULI. STATES THAT HEADACHE IS IMPROVED AND DENIES NEEDS AT THIS TIME. ASSESSMENT IS OTHERWISE UNCHANGED FROM HS.
[2019-05-13 03:12] LABS: BASOPHILS ABSOLUTE AUTO 0.03 K/mm3 (0.00-0.23); BASOPHILS PERCENT AUTO 0 % (0-2); EOSINOPHILS ABSOLUTE AUTO 0.01 K/mm3 (0.00-0.68); EOSINOPHILS PERCENT AUTO 0 % (0-6); Hematocrit 40.2 % (37.0-53.0); Hemoglobin 13.3 g/dL (13.5-17.5); IMMATURE GRAN ABSOLUTE AUTO 0.05 K/mm3 (0.00-0.10); IMMATURE GRAN PERCENT AUTO 1 % (0-1); LYMPHOCYTES ABSOLUTE AUTO 1.72 K/mm3 (0.84-5.20); LYMPHOCYTES PERCENT AUTO 16 % (21-46); MONOCYTES ABSOLUTE AUTO 0.88 K/mm3 (0.16-1.47); MONOCYTES PERCENT AUTO 8 % (4-13); Mean Corpuscular HGB 30.6 pg (26.0-34.0); Mean Corpuscular HGB Conc 33.1 g/dL (31.5-36.5); Mean Corpuscular Volume 93 fL (80-100); Mean Platelet Volume 9.9 fL (9.1-12.4); NEUTROPHILS ABSOLUTE AUTO 8.29 K/mm3 (1.96-9.15); NEUTROPHILS PERCENT AUTO 75 % (41-73); Platelet Count 221 K/mm3 (150-400); RDW Coefficient Variation 12.6 % (11.7-14.2); Red Blood Cell Count 4.34 M/mm3 (4.30-5.90); White Blood Cell Count 10.98 K/mm3 (4.00-11.30)
[2019-05-13 03:26] LABS: Anion Gap 8 mmol/L (6-16); Blood Urea Nitrogen 15 mg/dL (8-24); Bun/Creatinine Ratio 19.9 (12.0-20.0); CO2, Blood 23 mmol/L (21-32); Calcium, Blood 8.8 mg/dL (8.5-10.1); Chloride, Blood 112 mmol/L (98-108); Creatinine, Blood 0.76 mg/dL (0.60-1.20); Glomerular Filtration Rate >60 (60-); Glucose, Blood 80 mg/dL (70-99); Magnesium, Blood 2.1 mg/dL (1.6-2.4); Phosphorus, Blood 2.4 mg/dL (2.5-4.9); Potassium, Blood 4.1 mmol/L (3.5-5.5); Sodium, Blood 143 mmol/L (136-145)
--- NOTE | 2019-05-13 06:43 | NUR ---
PT RESTS QUIETLY THROUGHOUT SHIFT, COMPLAINS OF HEADACHE RATED 8/10 THAT WAS WELL CONTROLLED WITH TYLENOL GIVEN ME EARLY IN THE SHIFT, HEADACHE WAS NOTED TO RETURN WITH INCREASE IN TEMP AND TYLENOL ADMIN ME FOR A SECOND DOSE AT 0350, PT APPEARED TO SLEEP FOLLOWING ADMINISTRATION, STATED HEADACHE CONTINUED AT THE TIME OF CHEST X RAY THIS AM, TEMP WAS NOTED TO BE IMPROVING AT THAT TIME. LUNGS CONTINUE COARSE THROUGHOUT WITH DIM BASES BILAT, SATS DECREASE TO HIGH 80S WITH SLEEP AND OXYGEN AT 1 L/MIN VIA NC AND TITRATED UP TO 2 L/MIN WITH IMPROVEMENT IN SATS. REMAINS EASILY AROUSABLE TO VERBAL STIMULI THROUGHOUT SHIFT, SHORT EPISODE OF CONFUSION WITH 0400 ASSESSMENT AT WHICH TIME PT STATED THAT HE THOUGHT THAT HE WAS IN A HOSPITAL IN [place] BUT REORIENTED EASILY WITH DISCUSSION OF EVENTS OF THIS ADMISSION. CONTINUES IN SINUS RHYTHM WITH OCCASIONAL PVCS, PRESSURE MAINTAINING, PULSES REMAIN FULL, EDEMA IMPROVING, SKIN REMAINS PINK AND DRY, TEMP IMPROVED WITH TYLENOL ADMIN THIS SHIFT. ABD REMAINS SOFT WITH HYPOACTIVE BOWEL TONES. RUIZ REMAINS IN PLACE DRAINING CLEAR MILES URINE.
--- NOTE | 2019-05-13 08:06 | NUR ---
Recieved report from Daniel VELIZ. Patient awake in bed recieving breathing treatment along with 2L O2 via NC and sats 97%. He is alert to self and situation, and confused place and time. He states that he has no SI and was depressed at the time of taking medications. He is afebrile 98.9 systolic 130's, HR 70's, RR 18. He has on going hic-ups and has had since extubation yesterday, possible side effect of meds overdosed on per poison control. He has 18ga LFA dressing intact and site WNL's and is flushed and SL's. He also has 18ga IV RH dressing intact and site WNL's and is infusing NS with 20 meq K at 100ml/hr. He also has FS RH dressing intact and site WNL's and is flushed and SL'd. He has aguayo in place draining to gravity nickie urine.
--- NOTE | 2019-05-13 10:15 | NUR ---
Changed patients linen and got him up to chair, he was a one assist to chair for weakness and lines and tubes. at bedside. He continues with frequent hic-ups. 2L O2 and sats mid 90%'s.
--- NOTE | 2019-05-13 11:12 | NUR ---
Patient stated he was feeling dizzy and systolic 120, HR 70-80's and O2 Sats 97% 2L. We did a two assist back to bed and he reacted a little weaker but was able to transfer with support. PT by to work with patient but just got back to bed and he was still c/o dizziness and will return later.
--- NOTE | 2019-05-13 11:49 | NUR ---
Patient having tele Psych currently with in room and was ok with
--- NOTE | 2019-05-13 12:30 | NUR ---
Telepsych done and see chart for recommendation. patient resting with at bedside. He is slightly febrile at 99.7. He remains on 2L O2 and sats mid 90%'s. He denies any current pain. He states that the hic-ups are starting to bother him. He remains NPO.
--- NOTE | 2019-05-13 14:49 | NUR ---
Patient now resting again in bed PT came back and walked patient around ICU and he tolerated well. VSS. No other significant changes.
--- NOTE | 2019-05-13 16:31 | NUR ---
Patient tolerated several jello and has been changed to full liquid nectar thick. He states makes hic-ups go away.. He continues to rest and call appropriately. He reains on 2L O2 and sats mid 90%'s. He has been very appropriate with mild confusion. Continues to deny SI.
--- NOTE | 2019-05-13 17:47 | NUR ---
Removed aguayo and patient has voided small amout. He is sitting at bedside eat/drinking full liquid diet. VSS. @l O2 via NC and sats mid 90%'s. He has on going mild headach chronic and has no ther issues. speech mildly garbled but understandable.
--- NOTE | 2019-05-13 19:20 | NUR ---
ASSUMED CARE PT RESING IN BED, IN ROOM WITH PT. PT IS MED NO TELE STATUS W/ 2MD HOLD REMAINS IN PLACE AND ON CAMERA- TELEPSYCH RECOMMENDED IN-PT TX, PLAN FOR SOC SERVICES TO ASSIST WITH TOMORROW. PT'S IN ROOM TOUCHING BUTTONS ON IV PUMP. DISCUSSED THAT SHE IS NOT TO TOUCH PUMP UNDER ANY CIRCUMSTANCES. PT REQUESTING MEDS FOR LARIOS. DISCUSSED THAT D/T OVERDOSE, POTENTIAL IS LOW AND MAY NEED TO DISCUSS WITH AM HOSPITALIST. BP STALBE, O2 SATS >90% W/ 2L/NC.
--- NOTE | 2019-05-14 06:02 | NUR ---
SHIFT SUMMARY NO ACUTE EVENTS OVERNIGHT. PT CONTINUES TO REPORT CHRONIC LARIOS BUT HAS BEEN ABLE TO SLEEP FOR SOME OF THE SHIFT. PT CONTINUES TO USE SUCTION TO AID IN SECRETION REMOVAL AND HICCUPS WHILE AWAKE, NOTED NO HICCUPS WHEN SLEEPING. PT TOLERATING NECTAL THICK FLUIDS WELL, PLAN FOR ST EVAL BUT NO ORDER, WILL HAVE AM RN SPEAK WITH THIS AM. VSS, O2 SATS >90% ON 2L/NC-OFF TELE. NS W/ 20 KCL CONTINUES AT 100ML/HR.
--- NOTE | 2019-05-14 07:20 | NUR ---
ASSUMED CARE OF PATIENT; SEE ASSESSMENT CHARTING FOR DETAILS. LUNGS COARSE; MOIST COUGH; PRODUCTIVE OF SOME TANNISH SPUTUM; FLUTTER VALVE AT BEDSIDE. OXYGEN AT 2L/MIN VIA NC; BIOX >95%. VSS; AFEBRILE. VOIDING MODERATE AMOUNTS; STAND AT BEDSIDE WITH USE OF WALKER AND SUPERVISION BY NURSE OR SPOUSE. REMAINS ON 11/04 SUICIDE WATCH; CAMERA IN ROOM; OBSERVED BY STAFF VIA REMOTE MONITORING. NS WITH 20MEQKCL INFUSING AT 100ML/HR. C/O HEADACHE PAIN AND STATES TYLENOL INEFFECTIVE. CONT. WITH CHRONIC HICCUPS; STATES JENNIFER MIST HELPS WITH HICCUPS (NOTE ON THICKENED LIQUIDS). RECEIVED FULL LIQUID TRAY FOR BREAKFAST; NO S/SX'S OF ASPIRATION; APPETITE GOOD.
--- NOTE | 2019-05-14 09:00 | NUR ---
OCCUPATIONAL THERAPIST HERE; SEE ORDERS.
--- NOTE | 2019-05-14 09:15 | NUR ---
SET UP AND CHARGER (RAMANDEEP) DISCUSSING DISCHARGE PLANNING ETC WITH PATIENT AND SPOUSE; SEE NOTES.
--- NOTE | 2019-05-14 09:32 | NUR ---
DR. ANGULO HERE; EVAL. PATIENT AND PATIENT TALKED WITH DOCTOR RE: 05/29 HEADACHE PAIN AND CHRONIC HICCUPS; PHYSICIAN TO RESEARCH MEDS. THAT WILL NOT AGGRAVATE OVERDOSE, ETC. SPOUSE AT BEDSIDE.
--- NOTE | 2019-05-14 10:31 | NUR ---
PHYSICAL THERAPY AMBULATED PATIENT T/O THE ICU; USED WALKER AND GAIT BELT. SPEECH THERAPIST INSTRUCTED APPLESAUCE WITH PILLS; NO FLUIDS/DIET TIL HICCUPS RESOLVED. DR. ANGULO ORDERED BACLOFEN AND ADVIL FOR HICCUPS AND H.A. PAIN.
--- NOTE | 2019-05-14 10:33 | NUR ---
ZOFRAN 4MG IV FOR C/O NAUSEA.
--- NOTE | 2019-05-14 10:38 | NUR ---
FEELING NAUSEATED, STILL; O.T. TO RETURN LATER TO WORK WITH PATIENT.
--- NOTE | 2019-05-14 11:05 | NUR ---
PATIENT TO TRANSFER TO [facility]. FLOOR, ROOM 349; REPORT GIVEN TO KEREN MORAN.
--- NOTE | 2019-05-14 12:32 | NUR ---
TRANSFERRED TO MEDICAL FLOOR, ROOM 349, VIA W/C; RN ACCOMPANIED. BELONGINGS, CHART WITH PATIENT/NURSE. TRANSFERRED WITHOUT INCIDIENT; TO REMAIN ON SUICIDE WATCH AND 2 MD HOLD; CAMERA IN ROOM.
--- NOTE | 2019-05-14 17:11 | NUR ---
SHIFT SUMMARY: PT TRANSFERRED FROM THE ICU THIS AFTERNOON AND HAS BEEN PLEASANT AND COOPERATIVE WITH CARE. PT STATED THAT HE DID ATTEMPT TO END HIS LIFE DUE TO HIS 'S ILLNESS BUT DID NOT REPORT ANY SUICIDE IDEATIONS SINCE HIS TRANSFER. PT HAS BEEN ATTEMPTING TO NAP. HIS IS NOW AT THE BEDSIDE VISITING WITH HIM.
--- NOTE | 2019-05-14 17:28 | NUR ---
PER REPORT ENTERPRISE ARCHITECT MANAGER, PT IS VISIBLE ON IN ROOM CAMERA
--- NOTE | 2019-05-14 20:00 | NUR ---
RN FROM [facility] [place] CALLED FOR REPORT TO DETERMINE IF PT WILL BE ACCEPTED. SHE WILL CALL BACK AFTER SPEAKING W/MD'S TO INFORM US IF TRANFER AND ADMISSION IS POSSIBLE.
--- NOTE | 2019-05-14 20:09 | NUR ---
POISON CONTROL CALLED FOR UPDATE ON PT AND WILL CALL AGAIN IN THE AM. THEY ADVISED FOR STAFF TO CALL FOR ANY FURTHER CONCERNS OR CONSULATION IF NECESSARY THROUGH THE EVENING. NO NEED OBSERVED AT THIS TIME.
--- NOTE | 2019-05-14 22:06 | NUR ---
PT HAS BEEN ACCEPTED BY [facility] AND T/F ORDERS HAVE BEEN PLACED BY . CHANGED PT'S NEEDED IV MEDS TO PO. HE ALSO DC'D IVF AND PRN O2 AND MADE LEVAQUIN PO X1 MORE DOSE FOR TOMORROW AT 1800 D/T NEEDING X5 TOTAL DOSES. SALEEM BURDICK IS WORKING ON FINDING SECURE TRANSPORT.
--- NOTE | 2019-05-14 22:31 | NUR ---
CARMEN FROM [facility] SAY TRANSPORT WILL LIKELY BE AVAILABLE ON 05/14/19 AT 0500.
--- NOTE | 2019-05-15 03:21 | NUR ---
05/15/19 0300 Mr. Pelayo's called to have us notify him she would not be in until tomorrow evening to visit with him. Pt was notified that pt was to be transfered to [facility] in [place] at around 0500 in the AM. was under the impression that he was going to [facility] in [place]. is unable to travel that distance and she also states pt will be very upset because he wants to go back to [facility] where he has been before. was transfered to talk with Deanna Monique the Senior Premium Auditor because of 's multiple questions. After reading case management notes, discussing with clinical cordinator, charge nurse and meat supervisor, it was decided to hold transport until case management can evaluate situation in the am. [facility] notified of travel delay and states pt is accepted and they are holding his bed. Dr. Flor notified of pt not being transfered at 0500 this am but later in morning unless determined otherwise by case management.
--- NOTE | 2019-05-15 06:02 | NUR ---
SUMMARY: PT A/OX4, IS SBA IN ROOM AND IS PLEASANT/COOPERATIVE W/CARE. HE REMAINS ON SI PRECAUTIONS W/CAMERA MONITORING BUT DENIES ANY SI AT THIS TIME. HE IS CANDID RE: HIS SITUATION AND EXPERIENCES LEADING UP TO HIS SUICIDAL ATTEMPT. HE AGREES TO INPATIENT PSYCH TX BUT PREFERS [facility] IN [place] WHERE HE HAS BEEN BEFORE AND IS CLOSER TO HOME/ D/T HER CHRONIC HEALTH PROBLEMS AND INABILITY TO TRAVEL LONG DISTANCES. [facility] [place] HAS ACCEPTED PT AND IS HOLDING HIS BED BUT TRANSPORT WAS HELD PER RECOMMENDATIONS FROM HEATHER GUTIERREZ AND SALEEM BURDICK UNTIL FURTHER EVALUATION CAN BE MADE BY CASE MANAGEMENT. SEE PREVIOUS NOTE FOR DETAILS. IVF WERE DC'D AND IV MEDS CHANGED TO PO ROUTE PER TRANSPORT REQUIREMENTS. PT TO HAVE X1 MORE DOSE OF PO LEVAQUIN TODAY AT 1800 TO COMPLETE A X5 DAY ABX TX. BACLOFEN AND ZOFRAN WERE RECIEVED FOR INTERMITTENT RELIEF OF PERSISTENT/NAGGING HICCUPS. NO ACUTE CHANGES, VSS AND AFEBRILE. WCTM AND REPORT TO DAY RN.
[2019-05-15] MEDS ORDERED: BACL10 (16:53)
[2019-05-15] MEDS ORDERED: ONDA4 PO (16:56)
[2019-05-15] MEDS ORDERED: LEVO750 (16:56)
[2019-05-15] MEDS ORDERED: PANT40 PO (16:57)
--- NOTE | 2019-05-15 17:34 | NUR ---
PT DCD HOME WITH . ALL MEDS AND FOLLOW UP APPTS REVIEWED WITH PT WHO VERBALIZED AN UNDERSTANDING. ALL BELONGINGS SENT WITH PT/ PT STABLE UPON DC.
== END 2019-05-15 17:21 | disposition home or self-care (01) | DRG 917 ==
LOC: ER 13:58 → ICUW 14:31 → ICUE 14:31 → ICUW 05-12 16:19 → MEDS 05-14 12:34
PROVIDERS: Emergency Medicine; Internal Medicine Critical Care Medicine; Nurse Practitioner Acute Care; ADMIT Internal Medicine
PROC: 0BH17EZ Insertion of Endotracheal Airway into Trachea, Via Natural or Artificial Opening (ICD-10-PCS; principal; 2019-05-09)
PROC: 5A1945Z Respiratory Ventilation, 24-96 Consecutive Hours (ICD-10-PCS; 2019-05-09)
DX: T39.1X2A Poisoning by 4-Aminophenol derivatives, intentional self-harm, initial encounter (principal); G92 Toxic encephalopathy; J96.01 Acute respiratory failure with hypoxia; A40.3 Sepsis due to Streptococcus pneumoniae; J13 Pneumonia due to Streptococcus pneumoniae; Q21.0 Ventricular septal defect; I10 Essential (primary) hypertension; F41.1 Generalized anxiety disorder; I25.10 Atherosclerotic heart disease of native coronary artery without angina pectoris; F32.9 Major depressive disorder, single episode, unspecified; F43.10 Post-traumatic stress disorder, unspecified; Z79.82 Long term (current) use of aspirin; Z98.52 Vasectomy status; G43.109 Migraine with aura, not intractable, without status migrainosus; M19.90 Unspecified osteoarthritis, unspecified site; Z79.02 Long term (current) use of antithrombotics/antiplatelets; E87.6 Hypokalemia; E83.39 Other disorders of phosphorus metabolism; R06.6 Hiccough; Y92.9 Unspecified place or not applicable
CPT/HCPCS: 31500; 31720; 36415; 36600; 51702; 70450; 71045; 80048; 80053; 80184; 81001; 82330; 82550; 82803; 82947; 83735; 84100; 84439; 84443; 85014; 85018; 85025; 85610; 85730; 87040; 87070; 87077; 87147; 87186; 87205; 92610; 93005; 93010; 94002; 94003; 94640; 94667; 94668; 94760; 96365-59; 97110; 97116; 97161; 97166; 97535; 99291-25; 99292; A9270; C9113; G0480; J0132; J0330; J0696; J1650; J1956; J2405; J2704; J3480; J7030; J7060; J7070

== ENCOUNTER 2019-06-10 12:45 | Observation (INO) | payer OTHER ==
[~2019-06-10] VITALS: Ht 175.3 cm; Wt 97.5 kg
[~2019-06-10 12:45] MED LIST changes: +BACL10; +CLON1 PO; +CLOP75 PO; +HYDPAM25 PO; +LEVO750; +ONDA4 PO; +PANT40 PO; +VENL75ER PO
[2019-06-10 13:11] LABS: BASOPHILS ABSOLUTE AUTO 0.03 K/mm3 (0.00-0.23); BASOPHILS PERCENT AUTO 0 % (0-2); EOSINOPHILS ABSOLUTE AUTO 0.07 K/mm3 (0.00-0.68); EOSINOPHILS PERCENT AUTO 1 % (0-6); Hematocrit 41.8 % (37.0-53.0); Hemoglobin 14.2 g/dL (13.5-17.5); IMMATURE GRAN ABSOLUTE AUTO 0.02 K/mm3 (0.00-0.10); IMMATURE GRAN PERCENT AUTO 0 % (0-1); LYMPHOCYTES PERCENT AUTO 32 % (21-46); MONOCYTES ABSOLUTE AUTO 0.38 K/mm3 (0.16-1.47); MONOCYTES PERCENT AUTO 6 % (4-13); Mean Corpuscular HGB 30.3 pg (26.0-34.0); Mean Corpuscular Volume 89 fL (80-100); Mean Platelet Volume 9.6 fL (9.1-12.4); NEUTROPHILS ABSOLUTE AUTO 4.16 K/mm3 (1.96-9.15); NEUTROPHILS PERCENT AUTO 61 % (41-73); Platelet Count 212 K/mm3 (150-400); RDW Coefficient Variation 12.2 % (11.7-14.2); RDW Standard Deviation 39.7 fL (35.1-46.3); Red Blood Cell Count 4.68 M/mm3 (4.30-5.90); White Blood Cell Count 6.86 K/mm3 (4.00-11.30)
[2019-06-10 13:27] LABS: International Normalized Ratio 1.01; Prothrombin Time Results 10.7 Sec (9.7-11.5)
[2019-06-10] MEDS ORDERED: BUSP10 PO (13:27)
[2019-06-10] MEDS ORDERED: QUET25 PO (13:28)
[2019-06-10] MEDS ORDERED: Desyrel150 MG PO (13:28)
[2019-06-10] MEDS ORDERED: ATOR40TA PO (13:30)
[2019-06-10 13:40] LABS: Alanine Aminotransfer (ALT/SGP 63 U/L (12-78); Albumin, Blood 3.6 g/dL (3.4-5.0); Alk Phos 51 U/L (50-136); Anion Gap 4 mmol/L (6-16); Aspartate Aminotrans (AST/SGOT 32 U/L (12-37); Bilirubin, Total 0.4 mg/dL (0.1-1.0); Blood Urea Nitrogen 16 mg/dL (8-24); Bun/Creatinine Ratio 18.8 (12.0-20.0); CO2, Blood 27 mmol/L (21-32); Calcium, Blood 8.5 mg/dL (8.5-10.1); Chloride, Blood 109 mmol/L (98-108); Creatinine, Blood 0.85 mg/dL (0.60-1.20); Globulin, Blood 3.6 g/dL (2.2-4.0); Glomerular Filtration Rate >60 (60-); Glucose, Blood 110 mg/dL (70-99); Potassium, Blood 3.8 mmol/L (3.5-5.5); Sodium, Blood 140 mmol/L (136-145); Total Protein, Blood 7.2 g/dL (6.4-8.2); Troponin I <0.015 ng/mL (0.000-0.040)
[2019-06-10 17:26] LABS: U Amphetamine Screen Not Detected; U Barbituate Screen Not Detected; U Benzodiazapine Screen Not Detected; U Buprenorphine Screen Not Detected; U Cannabinoids Screen Not Detected; U Cocaine Screen Not Detected; U Methadone Screen Not Detected; U Methamphetamine Screen Not Detected; U Opiates Screen Not Detected; U Oxycodone Screen Not Detected; U Phencyclidine Screen Not Detected; U Propoxyphene Screen Not Detected
[2019-06-10] MEDS ORDERED: VENLAFAXINE HCL75 MG PO (17:50)
[2019-06-10] MEDS ORDERED: HYDHCL25 PO (17:53)
[2019-06-10] MEDS ORDERED: ONDA4 PO (17:53)
[2019-06-10] MEDS ORDERED: PANT40 PO (17:54)
--- NOTE | 2019-06-11 05:08 | NUR ---
SHIFT SUMMARY- PT. ARRIVED FROM ED VIA STRETCHER INTO ROOM. ASSISTED INTO BED BY NURSING STAFF. NOTED RT SIDED WEAKNESS AND RT SIDE FACIAL DROOP. PT. C/O LARIOS, SCHEDULED MEDS AND PAIN MED GIVEN PER EMAR. Q4 NEURO CHECKS DONE PER ORDER, NO CHANGE IN CONDITION. PT. SBA TO BATHROOM, CALLS APPROPRIATELY FOR ASSISTANCE. REFUSES TO USE URINAL AT THIS TIME. ASLEEP THE REST OF THE NIGHT, NO APPARENT DISTRESS NOTED. DENIED ANY PAIN OR DISCOMFORT. CALL LIGHT WITHIN REACH AND SIDE RAILS UP X2. WILL CONT TO MONITOR.
[2019-06-11] MEDS ORDERED: SUMA25 PO (10:06)
--- NOTE | 2019-06-11 10:25 | NUR ---
DISCHARGE INSTRUCTIONS VERBALIZED TO PATIENT; PRINTED COPY ALSO GIVEN TO PATIENT TO TAKE HOME AND TO REFERENCE. IM[facility]RE[facility] PRESCRIPTION FAXED TO [facility] PER PATIENT REQUEST. ALL QUESTIONS ANSWERED. PATIENT IN ROOM WITH . WILL LET KEREN CRISTOBAL KNOW PATIENT DISCHARGE IS COMPLETE.
--- NOTE | 2019-06-11 10:32 | NUR ---
TELE MONITOR AND IV DISCONTINUED. PCU MULTISKILL OPERATOR NOTIFIED ABOUT D/C'ED TELE.
--- NOTE | 2019-06-11 10:54 | NUR ---
PATIENT D/C'D TO HOME WITH SPOUSE. D/C INSTRUCTIONS AND EDUCATION DISCUSSED WITH PATIENT AND COPY PROVIDED. PATIENT DENIES ANY FURTHER QUESTIONS OR CONCERNS.
== END 2019-06-11 10:57 | disposition home or self-care (01) ==
LOC: ER 12:45 → MEDS 12:46 → ENPENDDIS 06-11 10:07 → MEDS 06-11 10:57
PROVIDERS: Emergency Medicine; ADMIT Hospitalist
DX: G43.109 Migraine with aura, not intractable, without status migrainosus (principal); R29.898 Other symptoms and signs involving the musculoskeletal system; I10 Essential (primary) hypertension; I25.10 Atherosclerotic heart disease of native coronary artery without angina pectoris; F41.8 Other specified anxiety disorders; F43.10 Post-traumatic stress disorder, unspecified; Z86.73 Personal history of transient ischemic attack (TIA), and cerebral infarction without residual deficits; Z91.018 Allergy to other foods; Z88.2 Allergy status to sulfonamides; Z79.899 Other long term (current) drug therapy; Z79.02 Long term (current) use of antithrombotics/antiplatelets
CPT/HCPCS: 36415; 70450; 70496; 80053; 84484; 85025; 85610; 85730; 93005; 93010; 96361; 96365-59; 96375-59; 97165; 99285-25; G0378; J0780; J1170; J1200; J1885; J3475; J7030; J7120; Q9967

== ENCOUNTER 2019-07-27 09:21 | Observation (INO) | payer OTHER ==
[~2019-07-27] VITALS: Ht 175.3 cm; Wt 97.2 kg
[~2019-07-27 09:21] MED LIST changes: +ATOR40TA PO; +BUSP10 PO; +Desyrel150 MG PO; +HYDHCL25 PO; +QUET25 PO; +SUMA25 PO; +VENLAFAXINE HCL75 MG PO
[2019-07-27 09:47] LABS: Source, Urine Clean Catch
[2019-07-27 09:50] LABS: BASOPHILS ABSOLUTE AUTO 0.02 K/mm3 (0.00-0.23); BASOPHILS PERCENT AUTO 0 % (0-2); EOSINOPHILS ABSOLUTE AUTO 0.08 K/mm3 (0.00-0.68); EOSINOPHILS PERCENT AUTO 1 % (0-6); Hematocrit 39.5 % (37.0-53.0); Hemoglobin 13.4 g/dL (13.5-17.5); IMMATURE GRAN ABSOLUTE AUTO 0.01 K/mm3 (0.00-0.10); IMMATURE GRAN PERCENT AUTO 0 % (0-1); LYMPHOCYTES ABSOLUTE AUTO 2.03 K/mm3 (0.84-5.20); LYMPHOCYTES PERCENT AUTO 32 % (21-46); MONOCYTES ABSOLUTE AUTO 0.43 K/mm3 (0.16-1.47); MONOCYTES PERCENT AUTO 7 % (4-13); Mean Corpuscular HGB 30.5 pg (26.0-34.0); Mean Corpuscular HGB Conc 33.9 g/dL (31.5-36.5); Mean Corpuscular Volume 90 fL (80-100); Mean Platelet Volume 9.5 fL (9.1-12.4); NEUTROPHILS ABSOLUTE AUTO 3.76 K/mm3 (1.96-9.15); NEUTROPHILS PERCENT AUTO 59 % (41-73); Platelet Count 229 K/mm3 (150-400); RDW Coefficient Variation 12.5 % (11.7-14.2); RDW Standard Deviation 40.8 fL (35.1-46.3); White Blood Cell Count 6.33 K/mm3 (4.00-11.30)
[2019-07-27 09:51] LABS: Bilirubin, Urine Neg (Neg); Blood, Urine Neg (Neg); Glucose Qualitative, Urine Neg (Neg); Ketones, Urine Neg (Neg); Leukocyte Esterase, Urine 1+ (Neg); Nitrite, Urine Neg (Neg); Protein, Urine Neg (Neg); Urobilinogen, Urine NORM (Normal); pH, Urine 6.5 (5.0-8.0)
[2019-07-27 09:56] LABS: Appearance, Urine Clear (Clear); Color, Urine Yellow (P-Yellow)
[2019-07-27 09:57] LABS: Red Blood Cells, Urine 0-2 /hpf (0-2)
[2019-07-27 09:58] LABS: Bacteria Rare /hpf; Squamous Epithelial Cells Few /hpf (Few)
[2019-07-27 10:06] LABS: U Amphetamine Screen Not Detected; U Barbituate Screen Not Detected; U Benzodiazapine Screen DETECTED; U Buprenorphine Screen Not Detected; U Cannabinoids Screen Not Detected; U Cocaine Screen Not Detected; U Methadone Screen Not Detected; U Methamphetamine Screen Not Detected; U Opiates Screen DETECTED; U Oxycodone Screen Not Detected; U Phencyclidine Screen Not Detected; U Propoxyphene Screen Not Detected
[2019-07-27 10:08] LABS: Alanine Aminotransfer (ALT/SGP 41 U/L (12-78); Albumin, Blood 3.8 g/dL (3.4-5.0); Alk Phos 47 U/L (50-136); Anion Gap 9 mmol/L (6-16); Aspartate Aminotrans (AST/SGOT 27 U/L (12-37); Bilirubin, Total 0.6 mg/dL (0.1-1.0); Blood Urea Nitrogen 16 mg/dL (8-24); Bun/Creatinine Ratio 17.7 (12.0-20.0); CO2, Blood 24 mmol/L (21-32); Calcium, Blood 8.7 mg/dL (8.5-10.1); Chloride, Blood 107 mmol/L (98-108); Creatinine, Blood 0.91 mg/dL (0.60-1.20); Ethanol (Alcohol), Blood, Med <3 mg/dL; Globulin, Blood 3.7 g/dL (2.2-4.0); Glomerular Filtration Rate >60 (60-); Glucose, Blood 122 mg/dL (70-99); Potassium, Blood 4.1 mmol/L (3.5-5.5); Salicylate <1.7 mg/dL (2.8-20.0); Sodium, Blood 140 mmol/L (136-145); Total Protein, Blood 7.5 g/dL (6.4-8.2)
[2019-07-27 10:15] LABS: Acetaminophen, Random <2.0 ug/mL (10.0-30.0)
--- NOTE | 2019-07-27 11:18 | NUR ---
Patient is lying in bed and struggling to keep his eyes open. Patient tells me about his attempted suicide and the reasons that led him to the choice he made. Patient is open to spiritual care and admits that his emotional/spiritual tank is on empty and he is easily pulled into a place of feeling overwhelmed. I listen empathically, encourage self care and provide pastoral litigation counsel and prayer. Patient voices appreciation for the visit.
[2019-07-27] MEDS ORDERED: Ativan0.5 MG PO (12:11)
[2019-07-27] MEDS ORDERED: VENL150ER PO (12:12)
[2019-07-27] MEDS ORDERED: HALO2 PO (12:12)
[2019-07-27] MEDS ORDERED: HYDHCL25 PO (12:13)
[2019-07-27] MEDS ORDERED: RISP4 PO (12:13)
[2019-07-27] MEDS ORDERED: DULO60 PO (12:14)
[2019-07-27] MEDS ORDERED: PROP60 PO (12:14)
--- NOTE | 2019-07-27 13:58 | NUR ---
PATIENT ARRIVED TO ICU ROOM 9 VIA STRETCHER FROM ED AFTER HAVING RECEIVED REPORT FROM KEREN SCHULZ, PATIENT IS SOMNOLENT AND MOVED TO BED FROM STRETCHER VIA SLIDER, TOLERATES WELL, PLACED ON MONITOR AND SCANNED INTO CAPSULE, PATIENT IS AFEBRILE AT 98.8, DENIES PAIN AT THIS TIME, PATIENT IS A HIGH RISK SUICIDE AND CONTINUES TO VERBALIZE SUICIDAL IDEATIONS D/T INABILITY TO SUPPORT HIS , SITTER AT BEDSIDE, 2 MD HOLD IN CHART, CIVIL RIGHTS DOCUMENTATION IN CHART, ROOM CLEARED PER PROTOCOL, PATIENT IS SLEEPY BUT AROUSEABLE, ABLE TO TELL HIS NAME, UNABLE TO TELL WHAT TOWN HE IS IN, PATIENT BELIEVES HE IS IN [place] AT [facility], REORIENTED, PATIENT GIVES 2010 FOR YEAR BUT THEN RECONSIDERS AND STATES "2019", HE ALSO NAMES THE PRESIDENT RAMONE GONZALEZ AND WHEN TOLD THAT THIS IS INCORRECT HE IS UNABLE TO NAME THE CURRENT PRESIDENT, PATIENT KNOWS WHY HE IS IN THE HOSPITAL AND IS ABLE TO TELL ME THE MONTH AND DAY, DOES NOT KNOW THE TIME, LUNG SOUNDS ARE CLEAR, SR WITH HR IN 80'S AND BLOOD PRESSURES IN 120'S TO 140'S, BOWEL TONES PRESENT, PEDAL PULSES STRONG, PATIENT IS ABLE TO TELL WHEN HE NEEDS TO URINATE AND ASKS APPROPRIATELY FOR A URINAL, VOIDED 100 CC'S, 18G IN RIGHT HAND AND 20 G IN LEFT AC, RIGHT HAND PIV HAS NS AT 75 CC/HR INFUSING, PATIENT INSTRUCTED ON NEW ROOM AND ENVIRONMENT, PATIENT IS ON RA AT THIS TIME AND 02 SATURATION IS 95 %, SCD'S PLACED, SITTER AT BEDSIDE, WILL CONTINUE TO MONITOR.
--- NOTE | 2019-07-27 15:58 | NUR ---
POISON CONTROL CALLED ABOUT PATIENT, UPDATE WAS PROVIDED, CONTINUE TO MONITOR PATIENT FOR THE NEXT 8-12 HOURS PER POISON CONTROL, WILL CALL BACK LATER THIS EVENING.
--- NOTE | 2019-07-27 17:19 | NUR ---
PATIENT CONTINUES TO SLEEP AND HAVE VISUAL HALLUCINATIONS, TALKING TO INVISIBLE VISITORS, HOWEVER, PATIENT FOLLOWS COMMANDS, AND IS ABLE TO MAKE NEEDS KNOWN, SITTER IN ROOM.
--- NOTE | 2019-07-27 17:44 | NUR ---
PATIENT RECEIVED 4 MG OF ZOFRAN IV FOR C/O NAUSEA. WILL CONTINUE TO MONITOR.
--- NOTE | 2019-07-27 17:50 | NUR ---
SHIFT SUMMARY NOTE: NO ACUTE EVENTS, PATIENT IS DOING WELL, ON RA, VSS, DENIES PAIN, RECEIVED ZOFRAN ONCE FOR NAUSEA, PATIENT STATED "I AM HUNGRY AND THIRSTY, MAY I HAVE SOMETHING TO EAT OR DRINK", PATIENT WAS INSTRUCTED THAT HE IS NPO AT THIS TIME, PATIENT VERBALIZED UNDERSTANDING AND IS COOPERATIVE, HE IS INCREASINGLY MORE AWAKE AND ORIENTED, CALLED AND WAS GIVEN AN UPDATE ON PATIENT CONDITION, SHE WILL VISIT LATER AFTER BEING RELEASED FROM THE ER, PATIENT CONTINUES A HIGH RISK PATIENT FOR SUICIDE, 1:1, SITTER AT BEDSIDE, 2 MD HOLD, DR. FORTUNE CONSULTED, FOR DETAILS SEE ADMISSION ASSESSMENT DOCUMENTATION AND NURSES NOTES, WILL CONTINUE TO MONITOR AND GIVE REPORT TO ONCOMING SIDE LASTER STAPLE.
--- NOTE | 2019-07-27 19:38 | NUR ---
ASSUMED CARE OF PT, REPORT RECEIVED. PT IS RESTING QUIETLY RECLINING IN BED, DENIES CURRENT N/V, DENIES CP/PRESSURE, DENIES SOB/DYSPNEA, DENIES CURRENT PAIN. STATES THAT HE IS IN [facility] IN [place] ON JULY 26, 2019 FOLLOWING AN OVERDOSE IN ATTEMPT TO END HIS LIFE AND THAT THE PRESIDENT IS RAMON COTA. HE REORIENTS EASILY WHEN EXPLAINED THAT HE IS IN [facility] IN [place] AND THAT IT IS JULY 27. LUNGS ARE CLEAR THROUGHOUT, MAINTAINING SATS ON ROOM AIR, MID 90S, RESP RATE TEENS TO LOW 20S WITHOUT VISIBLE INCREASED WORK OF BREATHING, GOOD DEPTH OF RESPIRATIONS NOTED. HRR, SINUS ON MONITOR, RATE 60S, PRESSURE MAINTAINING, PULSES FULL X 4 EXTREMITIES, SKIN PWD WITH BRISK CAP REFILL, NO EDEMA IS NOTED AT THIS TIME. NORMOACTIVE BOWEL TONES ARE NOTED, LOW ABD WITH SOME DISTENTION NOTED, NO GUARDING WITH PALPATION. PT DOES STATE THAT HE FEELS LIKE HIS BLADDER IS NOT EMPTYING WITH VOIDS, WILL BLADDER SCAN FOR PVR.
--- NOTE | 2019-07-27 20:00 | NUR ---
PVR 880 ML, PT DOES REPORT SOME DISCOMFORT RELATED TO FEELING OF FULL BLADDER, CALL PLACED TO [facility] HOSPITALIST [employer] SUPERVISOR, ORDERS RECEIVED FOR RUIZ CATHETER FOR URINARY RETENTION
--- NOTE | 2019-07-27 20:10 | NUR ---
14 GERMAN COUDET CATHETER PLACED, PT TOLERATED WELL, IMMEDIATE RETURN OF CLEAR YELLOW URINE GREATER THAN 350 ML IN UROMETER, SPECIMEN SENT TO LAB PER PROTOCOL.
[2019-07-27 22:23] LABS: Source, Urine Catheter
[2019-07-27 22:25] LABS: Bilirubin, Urine Neg (Neg); Blood, Urine 1+ (Neg); Glucose Qualitative, Urine Neg (Neg); Ketones, Urine Neg (Neg); Leukocyte Esterase, Urine Neg (Neg); Nitrite, Urine Neg (Neg); Protein, Urine Neg (Neg); Urobilinogen, Urine NORM (Normal)
[2019-07-27 22:38] LABS: Appearance, Urine Clear (Clear); Color, Urine Yellow (P-Yellow)
[2019-07-27 22:39] LABS: Bacteria Not Seen /hpf; Red Blood Cells, Urine Rare /hpf (0-2); Squamous Epithelial Cells Not Seen /hpf (Few); White Blood Cells, Urine Rare /hpf (0-5)
[2019-07-28 03:19] LABS: BASOPHILS ABSOLUTE AUTO 0.03 K/mm3 (0.00-0.23); BASOPHILS PERCENT AUTO 0 % (0-2); EOSINOPHILS ABSOLUTE AUTO 0.06 K/mm3 (0.00-0.68); EOSINOPHILS PERCENT AUTO 1 % (0-6); Hematocrit 38.3 % (37.0-53.0); Hemoglobin 13.1 g/dL (13.5-17.5); IMMATURE GRAN ABSOLUTE AUTO 0.02 K/mm3 (0.00-0.10); IMMATURE GRAN PERCENT AUTO 0 % (0-1); LYMPHOCYTES ABSOLUTE AUTO 2.04 K/mm3 (0.84-5.20); LYMPHOCYTES PERCENT AUTO 27 % (21-46); MONOCYTES ABSOLUTE AUTO 0.55 K/mm3 (0.16-1.47); MONOCYTES PERCENT AUTO 7 % (4-13); Mean Corpuscular HGB 31.3 pg (26.0-34.0); Mean Corpuscular HGB Conc 34.2 g/dL (31.5-36.5); Mean Corpuscular Volume 91 fL (80-100); Mean Platelet Volume 9.3 fL (9.1-12.4); NEUTROPHILS ABSOLUTE AUTO 4.98 K/mm3 (1.96-9.15); NEUTROPHILS PERCENT AUTO 65 % (41-73); Platelet Count 234 K/mm3 (150-400); RDW Coefficient Variation 12.5 % (11.7-14.2); RDW Standard Deviation 41.1 fL (35.1-46.3); Red Blood Cell Count 4.19 M/mm3 (4.30-5.90); White Blood Cell Count 7.68 K/mm3 (4.00-11.30)
[2019-07-28 03:36] LABS: Alanine Aminotransfer (ALT/SGP 37 U/L (12-78); Albumin, Blood 3.5 g/dL (3.4-5.0); Albumin/Globulin Ratio 1.1 (0.8-1.8); Alk Phos 42 U/L (50-136); Anion Gap 8 mmol/L (6-16); Aspartate Aminotrans (AST/SGOT 25 U/L (12-37); Bilirubin, Total 0.8 mg/dL (0.1-1.0); Blood Urea Nitrogen 15 mg/dL (8-24); CO2, Blood 23 mmol/L (21-32); Calcium, Blood 8.2 mg/dL (8.5-10.1); Chloride, Blood 110 mmol/L (98-108); Creatinine, Blood 0.88 mg/dL (0.60-1.20); Globulin, Blood 3.3 g/dL (2.2-4.0); Glomerular Filtration Rate >60 (60-); Glucose, Blood 77 mg/dL (70-99); Potassium, Blood 3.9 mmol/L (3.5-5.5); Sodium, Blood 141 mmol/L (136-145); Total Protein, Blood 6.8 g/dL (6.4-8.2)
--- NOTE | 2019-07-28 05:23 | NUR ---
PT RESTS QUIETLY THROUGHOUT THIS SHIFT, REQUESTED ZOFRAN FOR NAUSEA ASSOCIATED WITH HICCOUGHS. PT REPORTS THAT HE CONTINUES TO HAVE VISUAL HALLUCINATIONS AT 0300 THIS AM, STATES THAT THEY AREN'T ALARMING "JUST WEIRD" HE DOES STATE THAT HE "CAN'T SAY ONE WAY OR THE OTHER" TO WHETHER HE PLANS TO ATTEMPT SUICIDE AGAIN BUT THAT HIS PLAN WOULD BE "TO OVERDOSE AGAIN." REMAINS HIGH SUICIDE RISK. HE CONTINUES TO BE ORIENTED, AROUSES EASILY TO VERBAL STIMULI. LUNGS REMAIN CLEAR WITH DIM BASES BILAT, MAINTAINING SATS ON ROOM AIR, RESP RATE CONTINUES TEENS TO LOW 20S WITH GOOD VOLUMES NOTED. HRR, CONTINUES SINUS ON MONITOR, PRESSURE MAINTAINING. INITIAL LOW VOID EVEN WITH BEING ALLOWED TO STAND AT BEDSIDE WITH ASSIST, WITH REPORTS OF FEELING OF FULLNESS IN BLADDER, POST VOID RESIDUAL BLADDER SCAN OF 880 ML, RUIZ CATHETER PLACED, PT TOLERATED WELL, DRAINING CLEAR YELLOW URINE TO GRAVITY THROUGHOUT THE REMAINDER OF THIS SHIFT.
--- NOTE | 2019-07-28 07:15 | NUR ---
START OF SHIFT NOTE: RECEIVED REPORT FROM CHASTITY LOVE RN, ASSUMED CARE, PATIENT CONTINUES TO HAVE A SITTER 1:1 HIGH RISK FOR SUICIDE, PATIENT STILL THINKS ABOUT SUICIDE AND HOW TO EXECUTE HIS PLANS, HIS REASON FOR DESIRE TO KILL HIMSELF IS THAT "I CANNOT SUPPORT MY ", PATIENT DENIES PAIN, AFEBRILE, LUNG SOUNDS CLEAR, NSR WITH HR IN 60'S, SBP'S IN 120'S THIS AM, BOWEL TONES PRESENT IN ALL FOUR QUADRANTS, PEDAL PULSES PALPABLE, PATIENT IS PLEASANT AND COOPERATIVE, ASKS FOR FOOD, SWABSTICKS TO KEEP ORAL CAVITY MOIST GIVEN, NPO AT THIS TIME, VSS, CALL LIGHT IN REACH, WILL CONTINUE TO MONITOR.
--- NOTE | 2019-07-28 09:34 | NUR ---
DR. WALDROP IN TO SEE PATIENT, NEW ORDERS RECEIVED.
--- NOTE | 2019-07-28 09:47 | NUR ---
POISON CONTROL CALLED FOR UPDATE, PROVIDED, THEY ARE CLOSING THE CASE AT THIS TIME.
--- NOTE | 2019-07-28 13:13 | NUR ---
PATIENT WATCHING TV, SITTER IN ROOM, PATIENT IS ALERT AND ORIENTED AND PLEASANT AND COOPERATIVE AT THIS TIME, BUT CONTINUES TO HAVE SUICIDIAL THOUGHTS.
--- NOTE | 2019-07-28 15:51 | NUR ---
PATIENT RECEIVED 650 MG TYLENOL PO FOR HEADACHE 12/27, REPORTED THAT HEADACHE IS NOW A 2, TYLENOL EFFECTIVE, SITTER CONTINUES AT BEDSIDE, WILL CONTINUE TO MONITOR.
--- NOTE | 2019-07-28 16:37 | NUR ---
ATTEMPTED TO CALL RN ON MEDICAL FLOOR, WILL CALL BACK.
--- NOTE | 2019-07-28 16:55 | NUR ---
REPORT CALLED TO KEREN LERMA, PATIENT WILL BE TRANSFERRED TO MEDICAL FLOOR, ROOM 350 VIA WHEELCHAIR.
--- NOTE | 2019-07-28 17:45 | NUR ---
ICU 9 TRANSFER TO SCU ROOM 350. ARRIVE APPROX 1710 ACCOMPANIED BY 1:1 SITTER R/T HIGH SI. ALSO ACCOMPANY PT TO ROOM. HE IS A/O X4, GENERALLY PLEASANT. STATE UNABLE TO STATE @ THIS TIME WHETHER HE HAS SUICIDAL IDEATION, STATE PREOCCUPIED WITH OTHER ISSUES. TELE MX REPORT NSR 70'S. DR WALDROP D/C IVF'S, IV SITE R AC SL. PT REQUEST 2ND IV SITE L HAND D/C'D. VSS.
--- NOTE | 2019-07-28 18:27 | NUR ---
PT STATES CONTINUING RESTLESSNESS, ANXIETY STATES "CREEPY CRAWLIES", STATE DOESN'T THINK HE WILL BE ABLE TO SLEEP TONITE, STATE UNDERSTANDING OF REASON HOME MEDS ARE BEING HELD @ THIS TIME HOWEVER HOPEFUL FOR CALL TO DR & POSSIBLE RELIEF. DR WALDROP NOTIFIED, ORDER ATIVAN 1MG Q6 PRN.
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
--- NOTE | 2019-07-29 12:39 | NUR ---
telepsyche appt arranged by charge operator for 7pm keri. [facility] in to assess pt, state will make recommendations for dr. pt continues calm, visiting. 1:1 sitter continues @ this time.
--- NOTE | 2019-07-29 18:15 | NUR ---
SUMMARY PT CONTINUE ON 2 MD HOLD W 1:1 SITTER R/T SUICIDE ATTEMPT. HE HAS BEEN PLEASANT/COOPERATIVE, SOMEWHAT RESTLESS/BORED. ASK TO AMBULATE IN SIMMS, ALLOWED WITH 1:1 SITTER, HE HAS BEEN APPROP. [facility] ETHNIC STUDIES PROFESSOR IN TO INTERVIEW HIM, STATE THEY WILL RECOMMEND TO DR TO RELEASE HOLD. PT WILL HVE TELEPSYCHE ASSESSMENT @ 7PM TONIGHT TO ADDRESS SI. RUIZ CATH D/C TODAY HE HAS BEEN VOIDING W/O RETENTION HOWEVER STATE NOTICED SOME BLOOD IN URINE ON FIRST VOID, URINE CLEAR YELLOW 2 THIS TIME NO BLOOD NOTED, PT REASSURED. VSS.
[2019-07-30 04:49] LABS: Hematocrit 41.1 % (37.0-53.0); Mean Corpuscular HGB 30.8 pg (26.0-34.0); Mean Corpuscular HGB Conc 34.1 g/dL (31.5-36.5); Mean Corpuscular Volume 90 fL (80-100); Mean Platelet Volume 9.3 fL (9.1-12.4); Platelet Count 255 K/mm3 (150-400); RDW Coefficient Variation 12.6 % (11.7-14.2); RDW Standard Deviation 41.4 fL (35.1-46.3); Red Blood Cell Count 4.55 M/mm3 (4.30-5.90); White Blood Cell Count 7.42 K/mm3 (4.00-11.30)
[2019-07-30 05:08] LABS: Albumin, Blood 3.7 g/dL (3.4-5.0); Anion Gap 8 mmol/L (6-16); Blood Urea Nitrogen 17 mg/dL (8-24); Bun/Creatinine Ratio 16.7 (12.0-20.0); CO2, Blood 24 mmol/L (21-32); Calcium, Blood 8.8 mg/dL (8.5-10.1); Chloride, Blood 108 mmol/L (98-108); Creatinine, Blood 1.02 mg/dL (0.60-1.20); Glomerular Filtration Rate >60 (60-); Glucose, Blood 87 mg/dL (70-99); Phosphorus, Blood 5.4 mg/dL (2.5-4.9); Potassium, Blood 3.8 mmol/L (3.5-5.5); Sodium, Blood 140 mmol/L (136-145)
--- NOTE | 2019-07-30 05:55 | NUR ---
SHIFT SUMMARY PT HAD TELEPSYCH CONFERENCE AT START OF SHIFT. PT REPORTED THAT HE FELT THIS WENT WELL. PT STATED THAT HE HASN'T THIS EVENING BUT THAT HE FEELS HE WILL AGAIN HAVE SUICIDAL IDEATION. PT STATES AT THIS TIME HE DOES NOT AND THAT HE HAS NO PLANS TO HARM HIMSELF. HE STATED THAT HE IS HOPEFUL THAT SOME MEDICATION CHANGES WILL HELP. 1:1 SITTER REMAINED AT BEDSIDE THROUGHOUT THE NIGHT. NO COMPLAINTS OF PAIN. SOME RESTLESSNESS AND ANXIETY. MEDICATED X 2 W/ 1 MG PO ATIVAN. PT PLEASANT AND COOPERATIVE THROUGHOUT THE NIGHT. NO ACUTE CHANGES. VSS. WILL CONTINUE TO MONITOR.
--- NOTE | 2019-07-30 07:21 | NUR ---
CALLED SCU MONITOR VERIFIED VIDEO MONITORING IS IN PLACE, MATEUS GUTIERRES
--- NOTE | 2019-07-30 08:41 | NUR ---
CONSENT RECIEVED FROM PATIENT TO PROVIDE AND ASSIST FOR CARE. CC
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
--- NOTE | 2019-07-30 14:52 | NUR ---
DEVIKA ROUNDED ON PT HE CHANGED PT STATUS TO LOW RISK SUICIDE. I CALLED DIRECTOR OF BEHAVIORAL HEALTH TO ASK WHAT IS NEEDED FROM NURSING STAFF: SHE STATED CAMERA OBS, CEASE ONE ON ONE SITTER, ASSESS SUICIDE RISK Q SHIFT. I HAVE ASSESSED RISK ORDERED. PT DENIES SUICIDAL IDEATION. DR FORTUNE STATED PSYCH OBSERVATION ORDER SIMPLY MEANS THAT THIS UNIT IS TO OBSERVE HIM FOR A FEW DAYS TO SEE IF SI RETURNS. DEVIKA HAS ADDED MEDICATIONS TO THE EMAR.
--- NOTE | 2019-07-30 16:49 | NUR ---
SHIFT SUMMARY DR FORTUNE ROUNDED ON PT. HE ENTERED NEW MEDICATION ORDERS, SEE EMAR. HE LOWERED SUICIDE RISK TO LOW. ONE ON ONE SITTER DC'D. IN CONSULTING WITH [employer], WE HAVE DECIDED TO ASSESS SI Q 4 HRS[address] MON[address]ORING IN PLACE. BATHROOM LOCKED. ENVIRONMENT IS SAFE, FREE OF RISKS. PT DENIES SI AT THIS TIME. PLAN IS TO OBSERVE THE PT FOR 1-2 DAYS AND THEN DC HOME.
--- NOTE | 2019-07-31 00:30 | NUR ---
PT SLEEPING AT THIS TIME.
--- NOTE | 2019-07-31 04:12 | NUR ---
SHIFT SUMMARY PT IN SAFE ENVIRONMENT, BATHROOM IS LOCKED. SI ASSESSMENT DONE EVERY FOUR HOURS. NO COMPLAINTS AT THIS TIME. CALL LIGHT IS IN REACH.
--- NOTE | 2019-07-31 04:48 | NUR ---
PT SLEEPING AT THIS TIME.
--- NOTE | 2019-07-31 13:20 | NUR ---
PATIENT STATED HE WAS HAVING A VERY BLACK DAY BUT WAS NOT INTENDING TO KILLSELF OR ACT UPON FEELINGS,.
--- NOTE | 2019-07-31 16:33 | NUR ---
PATIENT HAD SHOWER THIS SHIFT. HIS HAS BEEN AT BEDSIDE. HE IS PLEASANT AND COOPERATIVE WITH STAFF. PATIENT STATED HIS IV WAS HURTING AND ASKED TO HAVE IT REMOVED WHICH IS WAS. NO SS OF INFECTION NOTED. PATIENT HAS RESTED AND BEEN QUIET AND FRIENDLY ALL DAY. SOME ANXIETY NOTED AND MEDICATED PER EMAR.
[2019-08-01 04:50] LABS: BASOPHILS ABSOLUTE AUTO 0.03 K/mm3 (0.00-0.23); BASOPHILS PERCENT AUTO 1 % (0-2); EOSINOPHILS ABSOLUTE AUTO 0.16 K/mm3 (0.00-0.68); EOSINOPHILS PERCENT AUTO 3 % (0-6); Hematocrit 39.6 % (37.0-53.0); Hemoglobin 13.3 g/dL (13.5-17.5); IMMATURE GRAN ABSOLUTE AUTO 0.03 K/mm3 (0.00-0.10); IMMATURE GRAN PERCENT AUTO 1 % (0-1); LYMPHOCYTES ABSOLUTE AUTO 2.76 K/mm3 (0.84-5.20); LYMPHOCYTES PERCENT AUTO 44 % (21-46); MONOCYTES ABSOLUTE AUTO 0.38 K/mm3 (0.16-1.47); MONOCYTES PERCENT AUTO 6 % (4-13); Mean Corpuscular HGB 30.6 pg (26.0-34.0); Mean Corpuscular HGB Conc 33.6 g/dL (31.5-36.5); Mean Corpuscular Volume 91 fL (80-100); Mean Platelet Volume 9.2 fL (9.1-12.4); NEUTROPHILS ABSOLUTE AUTO 2.97 K/mm3 (1.96-9.15); NEUTROPHILS PERCENT AUTO 47 % (41-73); Platelet Count 230 K/mm3 (150-400); RDW Coefficient Variation 12.6 % (11.7-14.2); RDW Standard Deviation 41.7 fL (35.1-46.3); Red Blood Cell Count 4.34 M/mm3 (4.30-5.90); White Blood Cell Count 6.33 K/mm3 (4.00-11.30)
[2019-08-01 05:11] LABS: Anion Gap 7 mmol/L (6-16); Blood Urea Nitrogen 19 mg/dL (8-24); Bun/Creatinine Ratio 19.1 (12.0-20.0); CO2, Blood 24 mmol/L (21-32); Calcium, Blood 8.6 mg/dL (8.5-10.1); Chloride, Blood 108 mmol/L (98-108); Glomerular Filtration Rate >60 (60-); Glucose, Blood 115 mg/dL (70-99); Potassium, Blood 3.9 mmol/L (3.5-5.5); Sodium, Blood 139 mmol/L (136-145)
--- NOTE | 2019-08-01 07:08 | NUR ---
PATIENT RESTED WELL THIS SHIFT. SI PRECAUTIONS WERE IN PLACE THRU THE SHIFT. PT IS SCORING A "low" ON HIS si ASSESSMENTS. PT INDEPENDENT IN THE ROOM THO HIS BATHROOM DOOR REMAINS LOCKED.
--- NOTE | 2019-08-01 16:48 | NUR ---
NO ACUTE CHANGES TO PATIENT . HE REMAINS LOW RISK AND HAS HAD NO SUICIDE THOUGHTS PER PATINET THIS SHIFT.
[2019-08-02 04:41] LABS: BASOPHILS ABSOLUTE AUTO 0.04 K/mm3 (0.00-0.23); BASOPHILS PERCENT AUTO 1 % (0-2); EOSINOPHILS ABSOLUTE AUTO 0.04 K/mm3 (0.00-0.68); EOSINOPHILS PERCENT AUTO 1 % (0-6); Hematocrit 40.6 % (37.0-53.0); Hemoglobin 13.7 g/dL (13.5-17.5); IMMATURE GRAN ABSOLUTE AUTO 0.04 K/mm3 (0.00-0.10); IMMATURE GRAN PERCENT AUTO 1 % (0-1); LYMPHOCYTES ABSOLUTE AUTO 3.08 K/mm3 (0.84-5.20); LYMPHOCYTES PERCENT AUTO 41 % (21-46); MONOCYTES ABSOLUTE AUTO 0.53 K/mm3 (0.16-1.47); MONOCYTES PERCENT AUTO 7 % (4-13); Mean Corpuscular HGB 30.3 pg (26.0-34.0); Mean Corpuscular HGB Conc 33.7 g/dL (31.5-36.5); Mean Corpuscular Volume 90 fL (80-100); Mean Platelet Volume 9.2 fL (9.1-12.4); NEUTROPHILS ABSOLUTE AUTO 3.79 K/mm3 (1.96-9.15); NEUTROPHILS PERCENT AUTO 51 % (41-73); Platelet Count 247 K/mm3 (150-400); RDW Coefficient Variation 12.5 % (11.7-14.2); RDW Standard Deviation 40.6 fL (35.1-46.3); Red Blood Cell Count 4.52 M/mm3 (4.30-5.90); White Blood Cell Count 7.52 K/mm3 (4.00-11.30)
[2019-08-02 05:04] LABS: Anion Gap 5 mmol/L (6-16); Blood Urea Nitrogen 23 mg/dL (8-24); Bun/Creatinine Ratio 22.3 (12.0-20.0); CO2, Blood 26 mmol/L (21-32); Calcium, Blood 8.6 mg/dL (8.5-10.1); Chloride, Blood 107 mmol/L (98-108); Creatinine, Blood 1.03 mg/dL (0.60-1.20); Glomerular Filtration Rate >60 (60-); Glucose, Blood 96 mg/dL (70-99); Potassium, Blood 4.2 mmol/L (3.5-5.5); Sodium, Blood 138 mmol/L (136-145)
--- NOTE | 2019-08-02 07:26 | NUR ---
NO ACUTE CHANFGES TO REPORT
[2019-08-02] MEDS ORDERED: MIRT15ST PO (14:56)
--- NOTE | 2019-08-02 16:59 | NUR ---
DISCHARGE PT DISCHARGED TO HOME. THIS RN EXPLAINED DISCHARGE INSTRUCTIONS AND MEDICATIONS TO PT AND HE REPORTS HE UNDERSTANDS. PT TRANSFERRED TO PRIVATE VEHICLE VIA WHEELCHAIR BY NEEDLE MOLDER. PT'S BELONGINGS WITH PT.
== END 2019-08-02 16:12 | disposition home or self-care (01) ==
LOC: ER 09:21 → MEDS 09:22 → ER 10:40 → ICUW 10:40 → MEDS 10:40 → ICUW 10:40 → MEDS 10:40 → ICUW 13:56 → MEDS 14:09 → ICUW 07-28 17:12 → MEDS 07-28 17:12 → ENPENDDIS 08-02 12:45 → MEDS 08-02 16:12
PROVIDERS: Emergency Medicine; Internal Medicine; Nurse Practitioner Acute Care; ADMIT Internal Medicine
DX: T43.592A Poisoning by other antipsychotics and neuroleptics, intentional self-harm, initial encounter (principal); T43.022A Poisoning by tetracyclic antidepressants, intentional self-harm, initial encounter; T45.522A Poisoning by antithrombotic drugs, intentional self-harm, initial encounter; T43.212A Poisoning by selective serotonin and norepinephrine reuptake inhibitors, intentional self-harm, initial encounter; T44.6X2A Poisoning by alpha-adrenoreceptor antagonists, intentional self-harm, initial encounter; F43.12 Post-traumatic stress disorder, chronic; F33.9 Major depressive disorder, recurrent, unspecified; F41.1 Generalized anxiety disorder; F60.3 Borderline personality disorder; F41.8 Other specified anxiety disorders; I25.10 Atherosclerotic heart disease of native coronary artery without angina pectoris; I10 Essential (primary) hypertension; G43.909 Migraine, unspecified, not intractable, without status migrainosus; M19.90 Unspecified osteoarthritis, unspecified site; G89.29 Other chronic pain; Z98.52 Vasectomy status; Z79.02 Long term (current) use of antithrombotics/antiplatelets; Z79.899 Other long term (current) drug therapy; Z86.73 Personal history of transient ischemic attack (TIA), and cerebral infarction without residual deficits; Z88.2 Allergy status to sulfonamides; Z91.018 Allergy to other foods
CPT/HCPCS: 36415; 51702; 74018; 80048; 80053; 80069; 81001; 85025; 85027; 87086; 93005; 93010; 96360; 99285-25; A9270; G0480; J2405; J7030

== ENCOUNTER → 2019-12-05 | Outpatient (CLI) | payer OTHER ==
[~2019-12-05] MED LIST changes: +Ativan0.5 MG PO; +DULO60 PO; +HALO2 PO; +MIRT15ST PO; +PROP60 PO; +RISP4 PO; +VENL150ER PO
[2019-12-06 16:27] LABS: Influenza A Negative (NEGATIVE); Influenza B Negative (NEGATIVE)
== END | disposition home or self-care (01) ==
LOC: LAB 16:30 → LAB SHORT 16:30
PROVIDERS: Physician Assistant
DX: R05 Cough (principal); R50.9 Fever, unspecified
CPT/HCPCS: 87804

== ENCOUNTER 2020-12-03 17:50 | Emergency (ER) | payer OTHER ==
[~2020-12-03] VITALS: Ht 175.3 cm; Wt 93.0 kg
[2020-12-03] MEDS ORDERED: KLONOPIN0.5 M1 PO (19:16)
[2020-12-03] MEDS ORDERED: SERT100 PO (19:17)
[2020-12-03] MEDS ORDERED: Seroquel Xr50 MG PO (19:18)
== END 2020-12-03 20:18 | disposition home or self-care (01) ==
LOC: ER 17:50
DX: R51.9 Headache, unspecified (principal); Z79.899 Other long term (current) drug therapy
CPT/HCPCS: 36415; 85651; 86141; 96374; 96375; 99284-25; A9270; J1790; J1885

== ENCOUNTER → 2021-02-17 | Outpatient (CLI) | payer OTHER ==
[~2021-02-17] MED LIST changes: +KLONOPIN0.5 M1 PO; +SERT100 PO; +Seroquel Xr50 MG PO
== END | disposition home or self-care (01) ==
LOC: LAB SHORT 15:09 → LAB 15:09
DX: N30.01 Acute cystitis with hematuria (principal)
CPT/HCPCS: 87086

== ENCOUNTER 2021-04-24 10:45 | Emergency (ER) | payer OTHER ==
[~2021-04-24] VITALS: Ht 175.3 cm; Wt 78.3 kg
== END 2021-04-24 11:12 | disposition home or self-care (01) ==
LOC: ER 10:45
DX: U07.1 COVID-19 (principal); I10 Essential (primary) hypertension
CPT/HCPCS: 99282

== ENCOUNTER → 2021-07-22 | Outpatient (CLI) | payer OTHER ==
[2021-07-23 09:53] LABS: C DIFFICILE DNA POSITIVE (Negative)
== END | disposition home or self-care (01) ==
LOC: LAB 12:00 → LAB SHORT 12:00 → LAB FUT 03-06 14:55
PROVIDERS: Internal Medicine
DX: R19.7 Diarrhea, unspecified (principal)
CPT/HCPCS: 87324; 87493

== ENCOUNTER → 2021-11-18 | Outpatient (CLI) | payer OTHER ==
[2021-11-18 19:06] LABS: Protein, Urine Quantitative 13.7 mg/dL (0.0-11.9)
[2021-11-18 19:08] LABS: Microalbumin, Urine Quant. 6.36 mg/L (0.000-20.000)
== END ==
LOC: LAB SHORT 15:51 → LAB FUT 08-06 10:45
PROVIDERS: Internal Medicine Nephrology
DX: N18.2 Chronic kidney disease, stage 2 (mild) (principal); D63.1 Anemia in chronic kidney disease; E55.9 Vitamin D deficiency, unspecified; E78.00 Pure hypercholesterolemia, unspecified; R94.5 Abnormal results of liver function studies; R94.6 Abnormal results of thyroid function studies
CPT/HCPCS: 81050; 82043; 82570; 84156

== ENCOUNTER → 2022-03-13 | Outpatient (CLI) | payer MEDICARE, OTHER ==
[2022-03-13 11:42] LABS: Microalbumin, Urine Quant. <5.000 mg/L (0.000-20.000); Protein, Urine Quantitative <5.0 mg/dL (0.0-11.9)
== END | disposition home or self-care (01) ==
LOC: LAB 08:00 → LAB SHORT 08:00 → LAB FUT 03-10 10:10
PROVIDERS: Internal Medicine Nephrology
DX: N18.2 Chronic kidney disease, stage 2 (mild) (principal); D63.1 Anemia in chronic kidney disease; N25.81 Secondary hyperparathyroidism of renal origin; E55.9 Vitamin D deficiency, unspecified; E78.00 Pure hypercholesterolemia, unspecified; R76.9 Abnormal immunological finding in serum, unspecified; R94.5 Abnormal results of liver function studies; R94.6 Abnormal results of thyroid function studies
CPT/HCPCS: 82043; 82570; 84156

== ENCOUNTER 2022-08-10 14:12 | Emergency (ER) | payer MEDICARE, OTHER ==
[~2022-08-10] VITALS: Ht 175.3 cm; Wt 86.2 kg
[~2022-08-10 14:12] MED LIST changes: +TRAM50 PO
[2022-08-10 14:38] LABS: BASOPHILS ABSOLUTE AUTO 0.02 K/mm3 (0.00-0.23); BASOPHILS PERCENT AUTO 0 % (0-2); EOSINOPHILS ABSOLUTE AUTO 0.02 K/mm3 (0.00-0.68); EOSINOPHILS PERCENT AUTO 0 % (0-6); Hematocrit 43.3 % (37.0-53.0); Hemoglobin 15.1 g/dL (13.5-17.5); IMMATURE GRAN ABSOLUTE AUTO 0.01 K/mm3 (0.00-0.10); IMMATURE GRAN PERCENT AUTO 0 % (0-1); LYMPHOCYTES PERCENT AUTO 11 % (21-46); MONOCYTES ABSOLUTE AUTO 0.56 K/mm3 (0.16-1.47); MONOCYTES PERCENT AUTO 9 % (4-13); Mean Corpuscular HGB 31.5 pg (26.0-34.0); Mean Corpuscular HGB Conc 34.9 g/dL (31.5-36.5); Mean Corpuscular Volume 90 fL (80-100); Mean Platelet Volume 9.5 fL (9.1-12.4); NEUTROPHILS ABSOLUTE AUTO 4.86 K/mm3 (1.96-9.15); NEUTROPHILS PERCENT AUTO 79 % (41-73); Platelet Count 220 K/mm3 (150-400); RDW Standard Deviation 39.9 fL (35.1-46.3); White Blood Cell Count 6.17 K/mm3 (4.00-11.30)
[2022-08-10 14:57] LABS: Albumin/Globulin Ratio 1.2 (0.8-1.8); Bilirubin, Total 0.8 mg/dL (0.1-1.0); Bun/Creatinine Ratio 14.3 (12.0-20.0); Calcium, Blood 8.9 mg/dL (8.5-10.1); Creatinine, Blood 0.91 mg/dL (0.60-1.20); Globulin, Blood 3.3 g/dL (2.2-4.0); Potassium, Blood 4.1 mmol/L (3.5-5.5); Total Protein, Blood 7.3 g/dL (6.4-8.2)
[2022-08-10 16:07] LABS: Source, Urine Clean Catch
[2022-08-10 16:13] LABS: Appearance, Urine Hazy (Clear); Bilirubin, Urine Neg (Neg); Blood, Urine Neg (Neg); Color, Urine Yellow (P-Yellow); Glucose Qualitative, Urine Neg (Neg); Ketones, Urine Neg (Neg); Leukocyte Esterase, Urine 1+ (Neg); Nitrite, Urine Neg (Neg); Protein, Urine Neg (Neg); Urobilinogen, Urine NORM (Normal)
[2022-08-10 16:27] LABS: Amorphous Heavy (0-Heavy)
[2022-08-10 16:28] LABS: Calcium Oxalate Crystals Few /hpf; Mucus Light (0-Heavy); Red Blood Cells, Urine 0-2 /hpf (0-2)
[2022-08-10 16:29] LABS: Bacteria Few /hpf; Squamous Epithelial Cells Not Seen /hpf (Few)
== END 2022-08-10 19:37 | disposition home or self-care (01) ==
LOC: ER 14:12
PROVIDERS: Emergency Medicine
DX: G43.809 Other migraine, not intractable, without status migrainosus (principal); D72.829 Elevated white blood cell count, unspecified; G20 Parkinson's disease; F02.80 Dementia in other diseases classified elsewhere, unspecified severity, without behavioral disturbance, psychotic disturbance, mood disturbance, and anxiety; I10 Essential (primary) hypertension; Z88.2 Allergy status to sulfonamides; Z91.018 Allergy to other foods; Z79.899 Other long term (current) drug therapy
CPT/HCPCS: 80053; 81001; 82947; 85025; 87086; 93005; 93010; J0780; J1885; J2765; J7030

== ENCOUNTER 2023-02-21 18:45 | Emergency (ER) | payer MEDICARE, OTHER ==
[~2023-02-21] VITALS: Ht 175.3 cm; Wt 77.1 kg
[2023-02-21 18:51] VITALS: BP 158/108
[2023-02-21 19:20] LABS: BASOPHILS ABSOLUTE AUTO 0.02 K/mm3 (0.00-0.23); BASOPHILS PERCENT AUTO 0 % (0-2); EOSINOPHILS ABSOLUTE AUTO 0.04 K/mm3 (0.00-0.68); EOSINOPHILS PERCENT AUTO 1 % (0-6); Hematocrit 40.5 % (37.0-53.0); Hemoglobin 13.9 g/dL (13.5-17.5); IMMATURE GRAN ABSOLUTE AUTO 0.02 K/mm3 (0.00-0.10); IMMATURE GRAN PERCENT AUTO 0 % (0-1); LYMPHOCYTES ABSOLUTE AUTO 2.39 K/mm3 (0.84-5.20); LYMPHOCYTES PERCENT AUTO 30 % (21-46); MONOCYTES ABSOLUTE AUTO 0.43 K/mm3 (0.16-1.47); MONOCYTES PERCENT AUTO 5 % (4-13); Mean Corpuscular HGB 30.9 pg (26.0-34.0); Mean Corpuscular HGB Conc 34.3 g/dL (31.5-36.5); Mean Corpuscular Volume 90 fL (80-100); Mean Platelet Volume 9.8 fL (9.1-12.4); NEUTROPHILS ABSOLUTE AUTO 5.08 K/mm3 (1.96-9.15); NEUTROPHILS PERCENT AUTO 64 % (41-73); Platelet Count 261 K/mm3 (150-400); RDW Coefficient Variation 12.3 % (11.7-14.2); RDW Standard Deviation 40.4 fL (35.1-46.3); White Blood Cell Count 7.98 K/mm3 (4.00-11.30)
[2023-02-21 19:33] LABS: Albumin, Blood 4.2 g/dL (3.4-5.0); Albumin/Globulin Ratio 1.4 (0.8-1.8); Bilirubin, Total 0.5 mg/dL (0.1-1.0); Bun/Creatinine Ratio 10.7 (12.0-20.0); Calcium, Blood 9.2 mg/dL (8.5-10.1); Creatinine, Blood 1.03 mg/dL (0.60-1.20); Magnesium, Blood 2.5 mg/dL (1.6-2.4); Potassium, Blood 3.6 mmol/L (3.5-5.5); Total Protein, Blood 7.2 g/dL (6.4-8.2)
== END 2023-02-21 21:20 | disposition home or self-care (01) ==
LOC: ER 18:45
PROVIDERS: Student in an Organized Health Care Education/Training Program
DX: M54.2 Cervicalgia (principal); M25.552 Pain in left hip; W10.9XXA Fall (on) (from) unspecified stairs and steps, initial encounter; I10 Essential (primary) hypertension; G20 Parkinson's disease; Z88.2 Allergy status to sulfonamides; Z91.018 Allergy to other foods; Z79.899 Other long term (current) drug therapy
CPT/HCPCS: 70450; 71045; 72125; 72170; 80053; 83735; 85025; 86850; 86900; 86901; 93005; 93010; 99285-25; A9270

== ENCOUNTER 2025-07-17 12:08 | Emergency (ER) | payer OTHER ==
[~2025-07-17] VITALS: Ht 177.8 cm; Wt 74.8 kg
[2025-07-17 13:04] LABS: BASOPHILS ABSOLUTE AUTO 0.02 K/mm3 (0.00-0.23); BASOPHILS PERCENT AUTO 0 % (0-2); EOSINOPHILS ABSOLUTE AUTO 0.15 K/mm3 (0.00-0.68); EOSINOPHILS PERCENT AUTO 2 % (0-6); Hematocrit 42.0 % (37.0-53.0); Hemoglobin 14.6 g/dL (13.5-17.5); IMMATURE GRAN ABSOLUTE AUTO 0.02 K/mm3 (0.00-0.10); IMMATURE GRAN PERCENT AUTO 0 % (0-1); LYMPHOCYTES ABSOLUTE AUTO 2.24 K/mm3 (0.84-5.20); LYMPHOCYTES PERCENT AUTO 34 % (21-46); MONOCYTES ABSOLUTE AUTO 0.46 K/mm3 (0.16-1.47); MONOCYTES PERCENT AUTO 7 % (4-13); Mean Corpuscular HGB Conc 34.8 g/dL (31.5-36.5); Mean Corpuscular Volume 90 fL (80-100); NEUTROPHILS ABSOLUTE AUTO 3.66 K/mm3 (1.96-9.15); NEUTROPHILS PERCENT AUTO 56 % (41-73); NRBC ABSOLUTE 0.00 K/mm3 (0.00-0.02); NRBC Auto 0.0 /100 WBC (0.0-0.2); Platelet Count 245 K/mm3 (150-400); RDW Coefficient Variation 12.3 % (11.7-14.2); RDW Standard Deviation 40.1 fL (35.1-46.3)
[2025-07-17 13:25] LABS: Alanine Aminotransfer (ALT/SGP 23.0 U/L (12-78); Albumin, Blood 4.0 g/dL (3.4-5.0); Albumin/Globulin Ratio 1.2 (0.8-1.8); Anion Gap 10.0 mmol/L (3-11); Aspartate Aminotrans (AST/SGOT 21.0 U/L (12-37); Bilirubin, Total 0.7 mg/dL (0.1-1.0); Blood Urea Nitrogen 16.0 mg/dL (8-24); CO2, Blood 24.0 mmol/L (21-32); Calcium, Blood 9.0 mg/dL (8.5-10.1); Chloride, Blood 105.0 mmol/L (98-108); Creatinine, Blood 0.83 mg/dL (0.60-1.20); Globulin, Blood 3.2 g/dL (2.2-4.0); Glucose, Blood 101.0 mg/dL (70-99); Potassium, Blood 3.8 mmol/L (3.5-5.5); Sodium, Blood 135.0 mmol/L (136-145); Total Protein, Blood 7.2 g/dL (6.4-8.2)
[2025-07-17 14:28] LABS: Source, Urine Clean Catch
[2025-07-17 14:31] LABS: Bilirubin, Urine Neg (Neg); Glucose Qualitative, Urine Neg (Neg); Ketones, Urine Neg (Neg); Leukocyte Esterase, Urine Neg (Neg); Protein, Urine Neg (Neg); Specific Gravity, Urine 1.010 (1.003-1.022); Urobilinogen, Urine NORM (Normal)
[2025-07-17 14:40] LABS: Color, Urine Pale Yellow (P-Yellow)
[2025-07-17 16:30] VITALS: BP 135/92
[2025-07-17] MEDS ORDERED: LISI10 PO (16:48)
== END 2025-07-17 16:51 | disposition home or self-care (01) ==
LOC: ER 12:08
PROVIDERS: Emergency Medicine
DX: R07.89 Other chest pain (principal); R06.02 Shortness of breath; I77.810 Thoracic aortic ectasia; E87.1 Hypo-osmolality and hyponatremia; I25.10 Atherosclerotic heart disease of native coronary artery without angina pectoris; G20.A1 Parkinson's disease without dyskinesia, without mention of fluctuations; I10 Essential (primary) hypertension; Z88.2 Allergy status to sulfonamides; Z91.018 Allergy to other foods
CPT/HCPCS: 71046; 71275; 80053; 81003; 83690; 83880; 84484; 85025; 93005; 93010; 99285-25; A9270; Q9967